=== PATIENT | female | born 1945 | race Caucasian/White ===

== ENCOUNTER → 2016-12-14 | Day surgery (SDC) | payer OTHER, BC ==
[2016-12-05 15:48] VITALS: Ht 160 cm; Wt 65.9 kg
[~2016-12-14] VITALS: Ht 160 cm; Wt 65.9 kg
[~2016-12-14] MED LIST: ATEN25TA PO; CALC667C4 PO; CHOL100010 PO; CLTP PO; CNT PO; DENO60SO INJ; LIDOCAINE HCL 2% 2 ML VIAL (20MG/ML) ONE; MIDAZOLAM HCL 1 MG/ML 2ML VIAL ONE; ONDANSETRON INJ 2 MG/ML 2 ML VIAL ONE; PROPOFOL IV EMULSION 10 MG/ML 20 ML VIAL IV ONE; SERT-234 PO; SODIUM CHLORIDE 0.9% 500ML 500 ML IV ONE; ZOLP10TA PO
--- NOTE | 2016-12-14 10:22 | Endo History and Physical ---
History & Physical Date of Service: Dec 14, 2016. Chief Complaint: Family history of colon cancer Referring Physician: James Preston History of Present Illness 71 yo CF who presents for colonoscopy secondary to family history of colon cancer. Past Medical History Arthritis, Hypertension, Other Past Surgical History Hx Cardiac Surgery: No Hx Internal Defibrillator: No Hx Pacemaker: No Hx Abdominal Surgery: Yes (D&C) Hx of Implantable Prosthesis: No Hx Post-Op Nausea and Vomiting: No Hx Cancer Surgery: No Hx Thoracic Surgery: No Hx Orthopedic: Yes (RT TKA) Hx Urinary Tract Surgery: No Family History Colon CA, IBD Social History Smoking Status: Never Smoker Hx Substance Use: No Hx Alcohol Use: Yes (2-3 DRINKS/WEEK) Allergies Coded Allergies: Sulfa Antibiotics (Verified Allergy, Unknown, unknown, 12/14/16) Pt states sulfa eye drops in past caused itching and redness of eye Current Medications Reported Home Medications Medications Dose Route/Sig Max Daily Dose Days Date Category Phoslo 667 Mg (Calcium Acetate) 667 Mg Cap 1 Cap PO DAILY 90 12/14/16 Reported Tenormin (Atenolol) 25 Mg Tab 25 Mg PO QPM 12/05/16 Reported Ambien (Zolpidem Tartrate) 10 Mg Tab 1 Tab PO HS 02/04/16 Reported Prolia (Denosumab) 60 Mg/Ml Maryam 1 Dose INJ [id number] 01/08/16 Reported Vitamin D (Cholecalciferol) 1,000 Inter.unit Tab 2,000 Inter.unit PO QAM 01/08/16 Reported Zoloft (Sertraline HCl) 100 Mg Tab 100 Mg PO BID 01/08/16 Reported Centrum * (Multivitamins/Minerals) 1 Tab Tab 1 Tab PO QAM 09/17/11 Reported Vital Signs Weight (Kilograms): 65.91 Height (Feet): 5 Height (Inches): 3 Date Time Temp Pulse Resp B/P Pulse Ox O2 Delivery O2 Flow Rate FiO2 12/14/16 10:15 36.9 87 20 104/79 96 Room Air Physical Exam General Appearance: WD/WN, no apparent distress Respiratory/Chest: Auscultation: breath sounds normal Cardiovascular: Heart Auscultation: RRR Abdomen: Bowel Sounds: normal Inspection & Palpation: soft, non-distended, no tenderness, guarding & rebound Assessment and Plan Assessment: 71 yo CF who presents for colonoscopy secondary to family history of colon cancer. Plan: Proceed with colonoscopy.
--- NOTE | 2016-12-14 11:04 | GI REPORT ---
Procedure Date: 12/14/2016 10:28 AM Procedure: Colonoscopy Indications: Family history of colon cancer Medicines: Monitored Anesthesia Care Complications: No immediate complications. Estimated Blood Loss: Estimated blood loss: none. Procedure: Pre-Anesthesia Assessment: - Prior to the procedure, a History and Physical was performed, and patient medications and allergies were reviewed. The patient's tolerance of previous anesthesia was also reviewed. The risks and benefits of the procedure and the sedation options and risks were discussed with the patient. All questions were answered, and informed consent was obtained. Prior Anticoagulants: The patient has taken no previous anticoagulant or antiplatelet agents. ASA Grade Assessment: II - A patient with mild systemic disease. After reviewing the risks and benefits, the patient was deemed in satisfactory condition to undergo the procedure. After I obtained informed consent, the scope was passed under direct vision. Throughout the procedure, the patient's blood pressure, pulse, and oxygen saturations were monitored continuously. The scope was introduced through the anus and advanced to the terminal ileum. The colonoscopy was performed without difficulty. The patient tolerated the procedure well. The quality of the bowel preparation was good. The terminal ileum, ileocecal valve, appendiceal orifice, and rectum were photographed. Findings: A 5 mm polyp was found in the transverse colon. The polyp was sessile. The polyp was removed with a hot snare. Resection and retrieval were complete. Multiple small-mouthed diverticula were found in the sigmoid colon. Non-bleeding internal hemorrhoids were found during retroflexion. The hemorrhoids were small. Impression: - One 5 mm polyp in the transverse colon, removed with a hot snare. Resected and retrieved. - Diverticulosis in the sigmoid colon. - Non-bleeding internal hemorrhoids. Recommendation: - Resume previous diet. - Continue present medications. - Repeat colonoscopy for surveillance based on pathology results. - Return to primary care physician as previously scheduled. Sunil Bruner DO 12/14/2016 11:04:21 AM This report has been signed electronically. Note Initiated On: 12/14/2016 10:28 AM
--- NOTE | 2016-12-14 11:06 | Discharge Instructions ---
Endoscopy Patient Instructions Date / Procedure(s) Performed Dec 14, 2016. Colonoscopy Allergy Information Coded Allergies: Sulfa Antibiotics (Verified Allergy, Unknown, unknown, 12/14/16) Pt states sulfa eye drops in past caused itching and redness of eye Discharge Date / Findings Dec 14, 2016. Colon polyp Diverticulosis Internal hemorrhoids Medication Instructions Stopped Medication(s): ATENOLOL-LAST DOSE 12/13/16 CALCIUM-LAST DOSE 12/13/16 VITAMIN D-LAST DOSE 12/13/16 MULITVITAMIN-LAST DOSE 12/13/16 OK to resume all medications today as prescribed. Reported Home Medications Medications Dose Route/Sig Max Daily Dose Days Date Category Phoslo 667 Mg (Calcium Acetate) 667 Mg Cap 1 Cap PO DAILY 90 12/14/16 Reported Tenormin (Atenolol) 25 Mg Tab 25 Mg PO QPM 12/05/16 Reported Ambien (Zolpidem Tartrate) 10 Mg Tab 1 Tab PO HS 02/04/16 Reported Prolia (Denosumab) 60 Mg/Ml Maryam 1 Dose INJ [id number] 01/08/16 Reported Vitamin D (Cholecalciferol) 1,000 Inter.unit Tab 2,000 Inter.unit PO QAM 01/08/16 Reported Zoloft (Sertraline HCl) 100 Mg Tab 100 Mg PO BID 01/08/16 Reported Centrum * (Multivitamins/Minerals) 1 Tab Tab 1 Tab PO QAM 09/17/11 Reported Provider Instructions Activity Restrictions - No exercising or heavy lifting for 24 hours. - Do not drink alcohol the day of the procedure. - Do not drive a car or operate machinery until the day after the procedure. - Do not make any important decisions or sign important papers in 24 hours after the procedure. Following Day: - Return to full activity which may include returning to work/school. Diet Start your diet with liquids and light foods (jello, soup, juice, toast). Then eat your usual diet if not nauseated. Treatment For Common After Affects For mild abdominal pain, bloating, or excessive gas: - Rest - Eat lightly - Lie on right side Follow-Up Information Follow-up with DR. LANA CARPENTER as scheduled Anesthesia Information What You Should Know You have had a procedure that required some medicine to reduce anxiety and discomfort. This treatment is called moderate sedation. After receiving the treatment, you may be sleepy, but you will be able to breathe on your own. The effects of the treatment may last for several hours. Follow these instructions along with Activity/Diet recommendations noted above: * Do NOT do anything where dizziness or clumsiness would be dangerous. * Rest quietly at home today, then you can be up and about tomorrow. * Have a responsible person stay with you the rest of today. * You may have had an I.V. today. If so, you may take the dressing off later today. Recommendations Call your doctor if: * Trouble breathing * Continuous vomiting for more than 24 hours * Temperature above 101 degrees * Severe abdominal pain or bloating * Pain not relieved by pain medicine ordered * There is increased drainage or redness from any incision * A large amount of rectal bleeding greater than 2-3 tablespoons. (If you had a polyp/s removed or have hemorrhoids, a small amount of blood - from the rectum is to be expected.) * You have any unanswered questions or concerns. IN THE EVENT OF A SERIOUS EMERGENCY, GO TO THE NEAREST EMERGENCY ROOM Your discharge instructions were prepared by provider Sunil Bruner. Patient Instructions Signature Page Josette French Patient (or Guardian) Signature/Date: I have read and understand the instructions given to me by my caregivers. Caregiver/RN/Doctor Signature/Date: The above-named patient and/or guardian has received patient instructions on this date. + Original Patient Signature Page (only) stays with chart. Please make copy for patient.
[2016-12-14 11:35] VITALS: BP 119/80; PULSE 80; O2SAT 96
--- NOTE | 2016-12-14 11:57 | Anesthesiology Progress Note ---
Anesthesia Post Op Note Date & Time Dec 14, 2016 at 11:57 Vital Signs Pain Intensity: 0 Vital Signs Past 12 Hours Date Time Temp Pulse Resp B/P Pulse Ox O2 Delivery O2 Flow Rate FiO2 12/14/16 11:35 80 18 119/80 96 Room Air 12/14/16 11:21 75 18 108/63 97 Room Air 12/14/16 11:11 77 16 104/59 97 Room Air 12/14/16 11:01 82 16 139/76 98 Room Air 12/14/16 10:15 36.9 87 20 104/79 96 Room Air Notes Mental Status: alert / awake / arousable, participated in evaluation Pt Amnestic to Procedure: Yes Nausea / Vomiting: adequately controlled Pain: adequately controlled Airway Patency, RR, SpO2: stable & adequate BP & HR: stable & adequate Hydration State: stable & adequate Anesthetic Complications: no major complications apparent
== END | disposition home or self-care (01) ==
LOC: C.GI 09:50
PROVIDERS: ATTEND Internal Medicine
DX: Z12.11 Encounter for screening for malignant neoplasm of colon (principal); D12.3 Benign neoplasm of transverse colon; Z80.0 Family history of malignant neoplasm of digestive organs; K57.30 Diverticulosis of large intestine without perforation or abscess without bleeding; K64.8 Other hemorrhoids; I10 Essential (primary) hypertension; M19.90 Unspecified osteoarthritis, unspecified site; Z83.79 Family history of other diseases of the digestive system; Z88.2 Allergy status to sulfonamides; Z98.890 Other specified postprocedural states

== ENCOUNTER → 2017-03-29 | Outpatient (CLI) | payer OTHER, BC ==
[~2017-03-29] MED LIST changes: -CLTP PO; -LIDOCAINE HCL 2% 2 ML VIAL (20MG/ML) ONE; -MIDAZOLAM HCL 1 MG/ML 2ML VIAL ONE; -ONDANSETRON INJ 2 MG/ML 2 ML VIAL ONE; -PROPOFOL IV EMULSION 10 MG/ML 20 ML VIAL IV ONE; -SODIUM CHLORIDE 0.9% 500ML 500 ML IV ONE
--- NOTE | 2017-03-29 17:06 | DIAGNOSTIC IMAGING REPORT ---
LUMBAR SPINE 5 VIEWS CLINICAL HISTORY: Lower extremity weakness. Chronic low back pain. FINDINGS: Five views of the lumbar spine are compared to study dated 04/19/2013. The skeletal structures are osteopenic. There is no radiographic evidence of fracture or malalignment. Vertebral body height and alignment are maintained throughout the lumbar spine. The transverse and spinous processes appear intact. There is no evidence of spondylolysis. Anterior osteophytes are seen throughout. There is moderate to severe degenerative disc space narrowing at L4-L5 with associated endplate sclerosis. Mild disc space narrowing is seen at L2-L3, L3-L4, and L5-S1. Endplate sclerosis is also seen at L2-L3. Facet arthropathy is noted in the lower lumbar spine. Mild spinal curvature may be positional. Lateral marginal osteophytes are seen at L4-L5. The visualized bony pelvis appears intact. There is a nonobstructed abdominal bowel gas pattern. IMPRESSION: 1. There is no acute bony abnormality seen involving the lumbosacral spine. 2. Osteopenia and spondylotic change as above. Dictated: 03/29/2017 4:16 PM Transcribed: 03/29/2017 5:06 PM Ryan Electronically signed by: Rios Hall M.D. 03/29/2017 5:18 PM Dictated Date/Time: 03/29/2017 4:16 PM
== END | disposition home or self-care (01) ==
LOC: C.RADBC 16:00
PROVIDERS: ATTEND Family Medicine
DX: R29.898 Other symptoms and signs involving the musculoskeletal system (principal); M85.80 Other specified disorders of bone density and structure, unspecified site

== ENCOUNTER → 2017-07-03 | Outpatient (CLI) | payer OTHER, BC ==
[2017-07-03 17:40] LABS: BLOOD UREA NITROGEN 17 mg/dl (7-18)
== END | disposition home or self-care (01) ==
LOC: C.LABBC 13:19
PROVIDERS: ATTEND Psychiatry & Neurology Neurology
DX: Z00.00 Encounter for general adult medical examination without abnormal findings (principal); N18.3 Chronic kidney disease, stage 3 (moderate)

== ENCOUNTER → 2017-07-07 | Outpatient (CLI) | payer OTHER, BC ==
[~2017-07-07] MED LIST changes: +GADAVIST IV PRN
--- NOTE | 2017-07-07 13:20 | DIAGNOSTIC IMAGING REPORT ---
BRAIN COMBO FOR MS HISTORY: Demyelinating disorder G35 Multiple sclerosis TECHNIQUE: Multiplanar multisequence MRI of the brain was performed both before and after the intravenous administration of contrast. COMPARISON STUDY: 07/15/2010 FINDINGS: Diffusion-weighted images are negative for an acute ischemic insult. Additional imaging sequences show multiple foci of increased signal within the periventricular deep white matter regions. This includes the optic radiations bilaterally as well as right anterior evan. No significant postcontrast enhancement. As compared to the prior study. There has been no interval change. There are no new foci of altered signal. Sella and parasellar regions are unremarkable. IMPRESSION: 1. Findings consistent with multiple sclerosis. 2. The study is unchanged compared to the prior study. 3. No new or interval findings. 4. No abnormal postcontrast enhancement The above report was generated using voice recognition software. It may contain grammatical, syntax or spelling errors. Electronically signed by: Anibal Kay M.D. 07/07/2017 1:19 PM Dictated Date/Time: 07/07/2017 1:12 PM
--- NOTE | 2017-07-07 13:31 | DIAGNOSTIC IMAGING REPORT ---
CERVICAL SPINE MRI WITH AND WITHOUT CONTRAST HISTORY: G35 Multiple sclerosis TECHNIQUE: Multiplanar multisequence MRI of the cervical spine was performed both before and after the use of intravenous contrast. COMPARISON STUDY: Cervical spine 07/16/2010. FINDINGS: No fracture or subluxation within the cervical spine. Prevertebral soft tissues and the C1-C2 interval are intact. Moderate to space narrowing at C2-C3, C3-C4, C4-C5, C5-C6. Severe disc space narrowing at C6-C7 which may be partially fused. There is also moderate to space are at C7-T1 and T1-T2. Mild to moderate facet degenerative changes throughout the cervical spine. Punctate focus of increased T2 signal within the right side of the cervical spinal cord at C5 and within the left side of the cervical spinal cord at the C7-T1 levels. No abnormal enhancement within the cervical spine. C2-C3: Small broad-based posterior disc bulge with no significant central canal and narrowing. Mild right-sided neural foraminal narrowing. C3-C4: No significant central canal narrowing due to a small broad-based posterior disc ossified complex. Mild bilateral neural foraminal narrowing. C4-C5: Small broad-based posterior disc bulge resulting in partial effacement of the anterior thecal sac which abuts the cord. However, there is no cord deformity. Moderate bilateral neural foraminal narrowing. C5-C6: Small broad-based posterior disc osteophyte complex without significant central canal narrowing. Moderate bilateral neural foraminal narrowing. C6-C7: No severe central canal narrowing. Mild right neural from narrowing. C7-T1: Small broad-based posterior disc bulge resulting in partial effacement of the anterior thecal sac without cord deformity. Mild right and moderate left neural foraminal narrowing. IMPRESSION: 1. A few punctate focus of increased T2 signal within the cervical spinal cord at the C5 level and C7-T1 levels. This likely represents foci of demyelination given the patient's history of multiple sclerosis. No abnormal enhancement to suggest active demyelination. These are new from the 2010 examination. 2. Multilevel cervical spondylosis as described above. Electronically signed by: Vinayak Ward M.D. 07/07/2017 1:29 PM Dictated Date/Time: 07/07/2017 1:15 PM
== END | disposition home or self-care (01) ==
LOC: C.MRIBC 11:44
PROVIDERS: ATTEND Psychiatry & Neurology Neurology
DX: G35 Multiple sclerosis (principal)

== ENCOUNTER → 2017-11-09 | Outpatient (CLI) | payer OTHER, BC ==
[~2017-11-09] MED LIST changes: -GADAVIST IV PRN
== END | disposition home or self-care (01) ==
LOC: C.PAPS 09:29
PROVIDERS: ATTEND Obstetrics & Gynecology
DX: Z12.4 Encounter for screening for malignant neoplasm of cervix (principal); Z78.0 Asymptomatic menopausal state

== ENCOUNTER → 2017-11-21 | Outpatient (CLI) | payer OTHER, BC ==
--- NOTE | 2017-11-21 15:57 | DIAGNOSTIC IMAGING REPORT ---
BONE SCAN 3 PHASE LIMITED CLINICAL HISTORY: HX OF KNEE REPLACEMENT pain TECHNIQUE: 3 phase study following the administration of 27 mCi technetium 99m MDP. COMPARISON STUDY: None FINDINGS: The initial vascular flow images demonstrate hyperemia to the region of the right knee. Blood pool images show increased activity about the right knee. Delayed images show increased activity deep to the femoral and to lesser extent tibial prosthesis. This appears to be localized to bone and is suggestive of loosening. 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 The above report was generated using voice recognition software. It may contain grammatical, syntax or spelling errors. Electronically signed by: Anibal Kay M.D. 11/21/2017 3:56 PM Dictated Date/Time: 11/21/2017 3:54 PM
== END | disposition home or self-care (01) ==
LOC: C.NUCL 12:10
DX: T84.032A Mechanical loosening of internal right knee prosthetic joint, initial encounter (principal); Y83.1 Surgical operation with implant of artificial internal device as the cause of abnormal reaction of the patient, or of later complication, without mention of misadventure at the time of the procedure; Y79.2 Prosthetic and other implants, materials and accessory orthopedic devices associated with adverse incidents

== ENCOUNTER → 2017-11-21 | Outpatient (CLI) | payer OTHER, BC ==
[2017-11-21 13:26] LABS: BASO % 0.8 %; BASO ABS # 0.05 K/uL (0-0.2); COMPLETE YES; EOS % 3.4 %; HEMATOCRIT 44.9 % (37-47); IG% 0.2 %; LYMPH % 16.6 %; LYMPH ABS # 1.03 K/uL (1.2-3.4); MEAN CELL VOLUME 92.8 fL (80-100); MEAN CORPUSCULAR HEMOGLOBIN 31.2 pg (25-34); MEAN CORPUSCULAR HGB CONC 33.6 g/dl (32-36); MEAN PLATELET VOLUME 10.3 fL (7.4-10.4); PLATELET COUNT 183 K/uL (130-400); RED BLOOD COUNT 4.84 M/uL (4.2-5.4)
[2017-11-21 13:52] LABS: ALT/SGPT 20 U/L (12-78); AST/SGOT 17 U/L (15-37); BLOOD UREA NITROGEN 18 mg/dl (7-18); BUN/CREATININE RATIO 17.7 (10-20); CALCIUM 9.3 mg/dl (8.5-10.1); CARBON DIOXIDE 29 mmol/L (21-32); CHLORIDE 106 mmol/L (98-107); CREATININE 1.02 mg/dl (0.60-1.20); GLUCOSE 86 mg/dl (70-99); SODIUM 139 mmol/L (136-145)
[2017-11-21 13:55] LABS: ALKALINE PHOSPHATASE 105 U/L (45-117); CHOLESTEROL 176 mg/dl (0-200); CHOLESTEROL/HDL RATIO 3.7; HDL CHOLESTEROL 47 mg/dl; LDL CHOLESTEROL CALCULATED 87 mg/dl; TRIGLYCERIDES 210 mg/dl (0-150); VERY LOW DENSITY LIPOPROT CALC 42 mg/dl
== END | disposition home or self-care (01) ==
LOC: C.LAB 12:53
DX: Z00.00 Encounter for general adult medical examination without abnormal findings (principal); T84.038A Mechanical loosening of other internal prosthetic joint, initial encounter; I12.9 Hypertensive chronic kidney disease with stage 1 through stage 4 chronic kidney disease, or unspecified chronic kidney disease; N18.3 Chronic kidney disease, stage 3 (moderate); Z13.220 Encounter for screening for lipoid disorders; Y83.1 Surgical operation with implant of artificial internal device as the cause of abnormal reaction of the patient, or of later complication, without mention of misadventure at the time of the procedure; Y79.2 Prosthetic and other implants, materials and accessory orthopedic devices associated with adverse incidents

== ENCOUNTER → 2017-11-28 | Outpatient (CLI) | payer OTHER, BC ==
[2017-11-28 16:32] LABS: BASO % 0.9 %; BASO ABS # 0.06 K/uL (0-0.2); EOS % 5.5 %; EOS ABS # 0.35 K/uL (0-0.5); HEMATOCRIT 44.5 % (37-47); IG# 0.02 K/uL (0.00-0.02); LYMPH % 22.9 %; LYMPH ABS # 1.46 K/uL (1.2-3.4); MEAN CELL VOLUME 93.5 fL (80-100); MEAN CORPUSCULAR HEMOGLOBIN 31.5 pg (25-34); MEAN CORPUSCULAR HGB CONC 33.7 g/dl (32-36); MEAN PLATELET VOLUME 10.4 fL (7.4-10.4); MONO % 9.7 %; MONO ABS # 0.62 K/uL (0.11-0.59); NEUT % 60.7 %; NEUT ABS # 3.87 K/uL (1.4-6.5); PLATELET COUNT 213 K/uL (130-400); RED CELL DISTRIBUTION WIDTH CV 13.4 % (11.5-14.5); RED CELL DISTRIBUTION WIDTH SD 45.5 fL (36.4-46.3); WHITE BLOOD COUNT 6.38 K/uL (4.8-10.8)
== END | disposition home or self-care (01) ==
LOC: C.LAB 15:38
DX: T84.038A Mechanical loosening of other internal prosthetic joint, initial encounter (principal); Y83.1 Surgical operation with implant of artificial internal device as the cause of abnormal reaction of the patient, or of later complication, without mention of misadventure at the time of the procedure

== ENCOUNTER → 2017-12-01 | Outpatient (CLI) | payer OTHER, BC | END | disposition home or self-care (01) | LOC: C.LAB 11:14 | DX: T84.018D Broken internal joint prosthesis, other site, subsequent encounter (principal); Y83.1 Surgical operation with implant of artificial internal device as the cause of abnormal reaction of the patient, or of later complication, without mention of misadventure at the time of the procedure ==

== ENCOUNTER → 2018-02-23 | Outpatient (CLI) | payer OTHER, BC ==
[2018-02-23 17:15] LABS: CREATININE 1.12 mg/dl (0.60-1.20)
== END | disposition home or self-care (01) ==
LOC: C.LAB1850 15:57
PROVIDERS: ATTEND Psychiatry & Neurology Neurology
DX: N18.3 Chronic kidney disease, stage 3 (moderate) (principal)

== ENCOUNTER → 2018-07-02 | Outpatient (CLI) | payer OTHER, BC ==
[2018-07-02 15:39] LABS: BLOOD UREA NITROGEN 16 mg/dl (7-18); CREATININE 1.04 mg/dl (0.60-1.20)
== END | disposition home or self-care (01) ==
LOC: C.LAB1850 13:45
PROVIDERS: ATTEND Psychiatry & Neurology Neurology
DX: G35 Multiple sclerosis (principal)

== ENCOUNTER → 2018-07-05 | Outpatient (CLI) | payer OTHER, BC ==
[~2018-07-05] MED LIST changes: +GADAVIST IV PRN
--- NOTE | 2018-07-05 14:50 | DIAGNOSTIC IMAGING REPORT ---
Brain MRI WITH AND WITHOUT CONTRAST HISTORY: Difficulty with balance. G35 Multiple sclerosis TECHNIQUE: Multiplanar multisequence MRI of the brain was performed both before and after the intravenous administration of contrast. COMPARISON STUDY: Brain MRI 07/07/2017. FINDINGS: No areas of restricted diffusion to suggest acute infarction. The midline structures are intact. The paranasal sinuses and mastoid air cells are clear. The major vascular flow-voids at the skull base are well-maintained. The ventricles and sulci demonstrate mild age-related involutional changes. There is no mass, hematoma, midline shift. The orbits are unremarkable. Multiple scattered foci of T2 hyperintensity seen predominantly within the periventricular white matter of the supratentorial brain are again noted. These are not significantly changed in size, number, distribution. Given the patient's history of multiple sclerosis these are consistent with white matter plaques. A punctate white matter plaque within the right evan remain stable. No abnormal enhancement to suggest active demyelination. Small developmental venous anomaly within the right frontal lobe remain stable. This is considered a normal variant. IMPRESSION: Multiple scattered white matter plaques are not significantly changed. This is consistent with the patient's history of multiple sclerosis. No abnormal enhancement to suggest active demyelination. Electronically signed by: Vinayak Ward M.D. 07/05/2018 2:48 PM Dictated Date/Time: 07/05/2018 2:37 PM
--- NOTE | 2018-07-05 14:53 | DIAGNOSTIC IMAGING REPORT ---
CERVICAL SPINE COMBO HISTORY: Demyelinating disorder G35 Multiple sclerosis TECHNIQUE: Multiplanar multisequence MRI of the cervical spine was performed both before and after the use of intravenous contrast. COMPARISON STUDY: 07/07/2017 FINDINGS: Moderate degenerative disc change at the entire cervical region. Foci of demyelination present described are diminished in prominence. There are no new or interval findings. No abnormal postcontrast enhancement. Degenerative disc change throughout with mild disc bulges throughout. No significant disc herniation or compromise of the spinal canal. No significant foraminal stenosis. IMPRESSION: 1. Stable to mildly improved exam. 2. A demyelinating foci present described are diminished in signal intensity and volume. 3. No evidence for new interval or progressive process. 4. Stable degenerative disc change throughout 5. No evidence for progressive lesion or significant postcontrast enhancement. The above report was generated using voice recognition software. It may contain grammatical, syntax or spelling errors. Electronically signed by: Anibal Kay M.D. 07/05/2018 2:51 PM Dictated Date/Time: 07/05/2018 2:37 PM
== END | disposition home or self-care (01) ==
LOC: C.MRI 12:53
PROVIDERS: ATTEND Psychiatry & Neurology Neurology
DX: G35 Multiple sclerosis (principal); M47.812 Spondylosis without myelopathy or radiculopathy, cervical region

== ENCOUNTER 2019-11-21 06:31 | Inpatient (IN) ==
--- NOTE | 2019-11-06 13:32 | PAT Medication Instructions ---
Medication Instructions Date of Service November 06, 2019 Home Medications calcium-vitamin D3-vitamin K 500 mg-1,000 unit-40 mcg chewable tablet 1 tab PO QDL cholecalciferol (vitamin D3) 2,000 unit tablet 2,000 units PO QAM multivitamin-ferrous fumarate-folic acid 18 mg-400 mcg tablet 1 tab PO QAM atenolol 25 mg PO QDL sertraline 200 mg PO QAM zolpidem 10 mg PO HS DO NOT take the morning of surgery calcium-vitamin D3-vitamin K 500 mg-1,000 unit-40 mcg chewable tablet 1 tab PO QDL cholecalciferol (vitamin D3) 2,000 unit tablet 2,000 units PO QAM multivitamin-ferrous fumarate-folic acid 18 mg-400 mcg tablet 1 tab PO QAM Take morning of surgery With a small sip of water, OTHERWISE NOTHING TO EAT OR DRINK AFTER MIDNIGHT: atenolol 25 mg PO QDL sertraline 200 mg PO QAM Take evening before surgery zolpidem 10 mg PO HS Other Notes If you have any questions please call us at [phone] or [phone] or [phone] or [phone]
--- NOTE | 2019-11-07 15:14 | Anesthesiology Consultation ---
Date of Service November 07, 2019 Assessment & Plan (1) Encounter for pre-operative examination: Chart Review Chart Review: Acceptable Risk for Surgery and Patient seen in Pre Admission Testing Teaching & Discussion Instructed NPO after midnight before surgery, except medications with 15 cc of water. Medication instructions provided according to the PAT guidelines. History Surgery Operation Date: 11/21/19 07:45 Proposed Procedures p L4-L5 Decompression and Fusion, Spinal Cord Monitoring - Silas Mitchell DO Height/Weight Height: 5 ft 3 in Weight: 68.6 kg Allergies Allergy/AdvReac Type Severity Reaction Status Date / Time Sulfa (Sulfonamide Allergy Unknown unknown Verified 10/31/19 11:51 Antibiotics) Medications Home Medications Medication Instructions Recorded Confirmed Last Taken calcium-vitamin D3-vitamin K 500 1 tab PO QDL tab 06/19/19 10/31/19 Unknown mg-1,000 unit-40 mcg chewable tablet cholecalciferol (vitamin D3) 2,000 2,000 units PO QAM tab 06/19/19 10/31/19 Unknown unit tablet multivitamin-ferrous 1 tab PO QAM 06/19/19 10/31/19 Unknown fumarate-folic acid 18 mg-400 mcg tablet atenolol 25 mg PO QDL 10/31/19 10/31/19 Unknown sertraline 200 mg PO QAM 10/31/19 10/31/19 Unknown zolpidem 10 mg PO HS 10/31/19 10/31/19 Unknown Past Medical History Medical History Bulging of intervertebral disc Depression Diverticulosis Hard of hearing High triglycerides History of colon polyps Hypertension (Chronic) Insomnia Low back pain Multiple sclerosis FOLLOWS W/ DR. REY Neurologic gait dysfunction Osteoporosis Stage III chronic kidney disease (Chronic) Normal BMP Exercise / Class Metabolic Activity III < 4 Walking/Shop/Light housework (Limited by back/leg pain, some mild SOB with 1 FOS but no CP) Past Family History Family History Mother Uterine cancer Father Acute myocardial infarction Brother Acute myocardial infarction Uncle Colon cancer maternal uncle Grandmother (Maternal) Colon cancer Past Surgical History Surgical History H/O tubal ligation History of colonoscopy History of loop electrical excision procedure (LEEP) S/P dilation and curettage S/P knee replacement right knee- 01/2016 Past Anesthesia History No Hx of Anesthesia Complications and No Family Hx of Anesthesia Complications History of PONV No Hx of PONV and No Hx of Motion Sickness Social History Smoking Status: Never smoker Do You Dip or Chew Tobacco: No Hx Alcohol Use: Yes Alcohol type: wine alcohol intake frequency: a few times a month Hx Substance Use: No substance use type: does not use Review of Systems Pt denies any recent chest pain, shortness of breath, palpitations, cough, fever or URI. Physical Exam Vital Signs BP: 134/76 P: 61 bpm SPO2: 97% RA T: 97.6 F R: 14 ENMT Mouth: + dentition abnormality (few missing) and + dental restorations (several crowns including front teeth); no chipped teeth and no loose teeth Thyromental Distance: < 3.5 Finger Breadths (3) Mallampati Class: II Neck normal visual inspection; neck extension not limited Respiratory normal respiratory effort Auscultation: lungs clear to auscultation bilaterally Cardiovascular Rate/Rhythm: regular rate and regular rhythm Heart Sounds: no murmur Vessels: no carotid bruit Extremities: no edema Testing Laboratory Results 11/07/19 14:47 11/07/19 14:47 PT 11.4 Seconds (9.0-12.0) 11/07/19 14:47 INR 1.1 (0.9-1.1) 11/07/19 14:47 APTT 25.4 Seconds (21.0-31.0) 11/07/19 14:47 Urine Color Yellow 11/07/19 Unknown Urine Appearance Cloudy (Clear) A 11/07/19 Unknown Urine pH 6.5 (4.5-7.5) 11/07/19 Unknown Ur Specific [place] 1.016 (1.000-1.030) 11/07/19 Unknown Urine Protein Negative (Negative) 11/07/19 Unknown Urine Glucose (UA) Negative (Negative) 11/07/19 Unknown Urine Ketones Negative (Negative) 11/07/19 Unknown Urine Nitrite Negative (Negative) 11/07/19 Unknown Ur Leukocyte Esterase 3+ (Negative) H 11/07/19 Unknown Urine WBC (Auto) >30 /hpf (0-5) H 11/07/19 Unknown Urine RBC (Auto) 5-10 /hpf (0-4) H 11/07/19 Unknown U Hyaline Cast (Auto) 1-5 /lpf (0-5) 11/07/19 Unknown U Epithel Cells (Auto) 20-30 /lpf (0-5) H 11/07/19 Unknown Urine Bacteria (Auto) Negative (Negative) 11/07/19 Unknown Blood Type A Positive 11/07/19 14:47 Antibody Screen NEGATIVE 11/07/19 14:47 11/07/19 Unknown Urine Culture - Final Urine,Clean Catch More than three types of organisms present, all moderate counts mixed probable skin salvador. No further identifications or sensitivities to follow. Electrocardiogram Date: 11/07/19 Findings: + NSR @ (65) and + RBBB Chest X-Ray Date: 11/07/19 FINDINGS: The patient is slightly AVINA rotated. Cardiac silhouette borderline enlarged. Minimal bibasilar opacities could be due to overlapping soft tissue in the setting of patient rotation. No pleural effusion or pneumothorax. Dextroscoliosis of the thoracolumbar junction. Chronic right AC joint separation. Upper abdomen normal. IMPRESSION: 1. Borderline cardiomegaly. 2. Apparent added density at the lung bases likely due to overlapping soft tissue in part due to patient rotation. 3. No acute cardiopulmonary disease.
[2019-11-07 15:35] LABS: Basophils # (auto) 0.04 K/uL (0-0.2); Basophils % (auto) 0.8 %; Eosinophils # (auto) 0.19 K/uL (0-0.5); Eosinophils % (auto) 3.8 %; Hematocrit (blood only) 43.5 % (37-47); Hemoglobin 14.4 g/dL (12.0-16.0); Immature Granulocytes # (auto) 0.01 K/uL (0.00-0.02); Immature Granulocytes % (auto) 0.2 %; Lymphocytes # (auto) 1.48 K/uL (1.2-3.4); Lymphocytes % (auto) 29.5 %; Mean Corpuscular Hemoglobin 30.7 pg (25-34); Mean Corpuscular Hgb Conc 33.1 g/dL (32-36); Mean Corpuscular Volume 92.8 fL (80-100); Mean Platelet Volume 10.7 fL (7.4-10.4); Monocytes # (auto) 0.44 K/uL (0.11-0.59); Monocytes % (auto) 8.8 %; Neutrophils # (auto) 2.86 K/uL (1.4-6.5); Neutrophils % (auto) 56.9 %; Platelet Count 179 K/uL (130-400); RDW Coefficient of Variation 13.4 % (11.5-14.5); RDW Standard Deviation 45.4 fL (36.4-46.3); Red Blood Count 4.69 M/uL (4.2-5.4); White Blood Count 5.02 K/uL (4.8-10.8)
[2019-11-07 15:42] LABS: Appearance Urine Cloudy (Clear); Bacteria Urine Automated Negative (Negative); Bilirubin Urine Negative (Negative); Blood Urine Negative (Negative); Color Urine Yellow; Epithelial Cell Urine Auto 20-30 /lpf (0-5); Glucose Urine UA Negative (Negative); Ketones Urine Negative (Negative); Leukocyte Esterase Urine 3+ (Negative); Nitrite Urine Negative (Negative); Protein Urine Negative (Negative); Specific Gravity Urine 1.016 (1.000-1.030); Urobilinogen Urine Negative (Negative); WBC Urine Automated >30 /hpf (0-5); pH Urine 6.5 (4.5-7.5)
--- NOTE | 2019-11-07 15:46 | XRay Report ---
XR chest Pre-admission PA/Lat CLINICAL HISTORY: 73 years-old Female presenting with preoperative assessment. TECHNIQUE: PA and lateral views of the chest were obtained. COMPARISON: None. FINDINGS: The patient is slightly AVINA rotated. Cardiac silhouette borderline enlarged. Minimal bibasilar opacit ies could be due to overlapping soft tissue in the setting of patient rotation. No pleural effusion o r pneumothorax. Dextroscoliosis of the thoracolumbar junction. Chronic right AC joint separation. Upp er abdomen normal. IMPRESSION: 1. Borderline cardiomegaly. 2. Apparent added density at the lung bases likely due to overlapping soft tissue in part due to pat ient rotation. 3. No acute cardiopulmonary disease. Electronically signed by: Cong Coffman M.D. 11/07/2019 3:45 PM
[2019-11-07 16:09] LABS: INR 1.1 (0.9-1.1); Partial Thromboplastin Ratio 0.9; Partial Thromboplastin Time 25.4 Seconds (21.0-31.0); Prothrombin Time 11.4 Seconds (9.0-12.0)
[2019-11-07 16:36] LABS: BUN Creatinine Ratio 14.7 (10-20); Calcium 8.7 mg/dl (8.5-10.1); Creatinine Clr Calc Pharmacy 47.5 ml/min; Est GFR (African American) 64.9; Potassium 4.2 mmol/L (3.5-5.1)
[~2019-11-21 06:31] MED LIST changes: +ACETAMINOPHEN 500 MG TAB PO SCH; -ATEN25TA PO; -CALC667C4 PO; +CEFAZOLIN 1000MG 1,000 MG/7.5 ML SYR IV SCH; -CHOL100010 PO; -CNT PO; +CeleBREX 200 MG CAP PO SCH; -DENO60SO INJ; +GABAPENTIN 300 MG CAP PO SCH; -GADAVIST IV PRN; +LR 15ML/HR IV SCH; -SERT-234 PO; -ZOLP10TA PO
[2019-11-21] MEDS ORDERED: MEPERIDINE HCL 25 MG/ML CARP IV PRN (06:59)
[2019-11-21] MEDS ORDERED: ONDANSETRON INJ 2 MG/ML 2 ML VIAL IV PRN ×2 (06:59→11:24)
[2019-11-21] MEDS ORDERED: ATROPINE SULFATE 0.1 MG/ML 10ML SYR IV PRN (06:59)
[2019-11-21] MEDS ORDERED: fentaNYL citrate 100 MCG/2 ML VIAL IV PRN (06:59)
[2019-11-21] MEDS ORDERED: HYDROmorphone INJ 1 MG/ML SYRINGE IV PRN ×2 (06:59→11:24)
[2019-11-21] MEDS ORDERED: ePHEDrine sulfate 50 MG/ML AMP IV PRN (06:59)
[2019-11-21] MEDS ORDERED: LABETALOL HCL IV 5 MG/ML 20ML IV PRN (06:59)
[2019-11-21] MEDS ORDERED: PHENYLEPHRINE 100MCG/ML 5ML SYR IV PRN (06:59)
[2019-11-21] MEDS ORDERED: BUPIVACAINE/EPINEPHRINE 0.5% MPF 1:200,000 10 ML VIAL ONE (07:00)
[2019-11-21] MEDS ORDERED: BACITRACIN INJ 50,000 UNIT VIAL ONE (07:01)
[2019-11-21] MEDS ORDERED: MIDAZOLAM HCL 1 MG/ML 2ML VIAL ONE (07:05)
[2019-11-21] MEDS ORDERED: fentaNYL citrate 100 MCG/2 ML VIAL ONE ×6 (07:06→09:50)
[2019-11-21] MEDS ORDERED: HYDROmorphone INJ 2 MG/ML SYR/VIAL ONE ×2 (07:06→08:22)
--- NOTE | 2019-11-21 07:32 | History & Physical Bridge Note ---
Date of Service November 21, 2019 History & Physical Bridge Note I have examined the patient, reviewed the History & Physical and in the interval since the performance of the History & Physical I have noted the following changes of clinical significance: no changes noted
--- NOTE | 2019-11-21 07:32 | History & Physical Report ---
Date of Service November 21, 2019 Assessment & Plan (1) Neurogenic claudication due to lumbar spinal stenosis: L4-L5 decompression fusion Present on Admission?: Yes History of Present Illness Chief Complaint: Back and leg pain Primary Care Provider: Lisa Hammond PA-C This is a 73-year-old female presents with chronic persistent back and leg pain. After failing extensive course of nonoperative care she is here for surgical intervention. Allergies Allergy/AdvReac Type Severity Reaction Status Date / Time Sulfa (Sulfonamide Allergy Unknown unknown Verified 11/21/19 07:19 Antibiotics) Home Medications Home Medications Medication Instructions Recorded Confirmed Type calcium-vitamin D3-vitamin K 500 1 tab PO QDL tab 06/19/19 11/21/19 History mg-1,000 unit-40 mcg chewable tablet cholecalciferol (vitamin D3) 2,000 2,000 units PO QAM tab 06/19/19 11/21/19 History unit tablet multivitamin-ferrous 1 tab PO QAM 06/19/19 11/21/19 History fumarate-folic acid 18 mg-400 mcg tablet atenolol 25 mg PO QDL 10/31/19 11/21/19 History sertraline 200 mg PO QAM 10/31/19 11/21/19 History zolpidem 10 mg PO HS 10/31/19 11/21/19 History Past Med/Surg History Medical History Bulging of intervertebral disc Depression Diverticulosis Hard of hearing High triglycerides History of colon polyps Hypertension (Chronic) Insomnia Low back pain Multiple sclerosis FOLLOWS W/ DR. REY Neurologic gait dysfunction Osteoporosis Stage III chronic kidney disease (Chronic) Normal BMP Surgical History H/O tubal ligation History of colonoscopy History of loop electrical excision procedure (LEEP) S/P dilation and curettage S/P knee replacement right knee- 01/2016 Family History Mother Uterine cancer Father Acute myocardial infarction Brother Acute myocardial infarction Uncle Colon cancer maternal uncle Grandmother (Maternal) Colon cancer Social History (Updated 10/28/19 @ 13:18 by Laura Mendez) Preferred Language: Malian Communication Ability: Effective Sales & Service Associate Required: No Beliefs That Will Affect Care: None Current Living Situation: Spouse Other Information That Helps Us Care for You: No Feels Safe at Home: Yes Safety Concerns: Feels Safe At This Time Smoking Status: Never smoker Do You Dip or Chew Tobacco: No ; Second Hand Exposure: No ; Hx Alcohol Use: Yes Alcohol type: wine Hx Substance Use: No caffeine: Yes Seatbelt Use: always Physical Exam Physical Exam: Patient is alert and oriented neurologically intact. Results & Data Vital Signs (Past 12 Hours) Vital Signs Temp Pulse Resp BP Pulse Ox 11/21/19 06:42 36.8 C 74 18 142/97 H 98
[2019-11-21] MEDS ORDERED: CEFAZOLIN 250 MG/ML 1 GM VIAL ONE (08:11)
[2019-11-21] MEDS ORDERED: FLOSEAL HEMOSTATIC MATRIX 10ML TOP ONE (08:27)
[2019-11-21] MEDS ORDERED: PHENYLEPHRINE 100MCG/ML 5ML SYR ONE ×2 (09:15→10:50)
[2019-11-21] MEDS ORDERED: NEOSTIGMINE METHYLSULFATE 1 MG/ML 10ML VIAL ONE (09:15)
[2019-11-21] MEDS ORDERED: ePHEDrine sulfate 50 MG/ML SYR ONE ×2 (09:15→10:50)
[2019-11-21] MEDS ORDERED: ROCURONIUM BROMIDE 10 MG/ML 5 ML VIAL ONE (09:15)
[2019-11-21] MEDS ORDERED: LIDOCAINE HCL 2% 2 ML VIAL/AMP(20MG/ML) INFIL ONE (09:15)
[2019-11-21] MEDS ORDERED: GLYCOPYRROLATE 0.2 MG/ML VIAL ONE (09:15)
[2019-11-21] MEDS ORDERED: ONDANSETRON INJ 2 MG/ML 2 ML VIAL ONE (09:15)
[2019-11-21] MEDS ORDERED: DEXAMETHASONE SOD INJ 4 MG/ML VIAL ONE (09:15)
[2019-11-21] MEDS ORDERED: PROPOFOL IV EMULSION 10 MG/ML 20 ML VIAL IV ONE (09:15)
[2019-11-21] MEDS ORDERED: LARYING-O-JET KIT (LTA) ONE (09:20)
--- NOTE | 2019-11-21 09:43 | Fluoroscopy Report ---
FL lumbar spine 2-3V CLINICAL HISTORY: 73 years-old Female presenting with L4-5 DECOMPRESSION/FUSION. TECHNIQUE: 2 fluoroscopic image(s) recorded as part of an intraoperative procedure. COMPARISON: MR lumbar spine from 08/21/2018. FINDINGS/IMPRESSION: Posterior bilateral transpedicular screw and juan fixation at L4-5 new from prior with interbody space r and L4 laminectomy. Please see surgical report for further details. Fluoroscopy dosage (mGy): 17.65. Fluoroscopy time: 19.5 seconds. Number or time of high level fluoroscopy (HLF), digital spot, or digital subtraction images: 0. ACT 112: Negative or not required by law. Electronically signed by: Cong Coffman M.D. 11/21/2019 9:42 AM
--- NOTE | 2019-11-21 09:46 | Operative Report ---
Post Operative Report Pre & Post Diagnosis Operation Date: 11/21/19 07:45 Pre-Op Diagnosis: Lumbar spinal stenosis with neurogenic claudication Post-Op Diagnosis: Same I identified the patient and participated in the time-out.: Yes Procedure Operation Date: 11/21/19 07:45 Actual Procedures #1 lumbar decompression with bilateral medial facetectomies foraminotomies L3-4 L4-5. #2 posterior spinal fusion L4-5 per #3 placed posterior instrumentation L4-5 per #4 interbody fusion L4-5 per #5 placed a peek cage 9 x 22 mm at L4-5. #6 placement of locally harvested morselized autograft in the posterior lateral gutters. #7 placement infuse collagen sponge, master graft in the posterior lateral gutters and ostial amp and interbody space. Surgeon Silas Mitchell DO Cubing Machine Tender None Estimated Blood Loss 175 Findings Consistent with Post-Op Diagnosis Specimens None Indications This is a 73-year-old female that presents with above-mentioned diagnosis after failing extensive course of nonoperative care is here for surgical invention. Description of Procedure Patient was met with identified informed consent obtained. Patient was then taken to the operative suite underwent an patient placed in a prone position the Jerzy table on top Carlo frame. All bony prominences well-padded eyes inspected to ensure no external pressure placed upon. This point the lumbar spine is prepped and draped in a sterile fashion. Sharp dissection with the assistance of Bovie cautery was performed down to and exposing the lamina transverse processes of L4 and L5 bilaterally. From a caudal cephalad fashion complete laminectomy of L4 was performed including bilateral medial facetectomi es and foraminotomies addressing his severe spinal stenosis. Pedicle screws were then placed in L4 and L5 bilaterally with assistance of fluoroscopy and the probably size juan placed. By way of a trans-foraminal approach on the left complete discectomy was performed endplates curetted to subcortical bleeding bone and a 9 x 22 mm peek cage filled with osteo-bone graft tapped in position. The rods were then locked in final position bilaterally. The transverse processes of L4 and L5 bur to subcortical bleeding bone. Infuse collagen sponge master graft and local autograft was placed in the posterior lateral gutters. 15 round NEVIN drain inserted. The incision was then closed with 1 Vicryl in the fascia 2-0 Vicryl subcutaneously and 4 Monocryl for final skin closure. Steri- Strip sterile dressings placed. Patient will continue PACU stable addition. Please note spinal cord monitoring was utilized that the procedure no changes noted. I attest to the content of the Intraoperative Record and any orders documented therein. Any exceptions are noted below.
[2019-11-21] MEDS ORDERED: ESMOLOL HCL INJ 10 MG/ML 10ML VIAL IV ONE (09:56)
--- NOTE | 2019-11-21 10:38 | Anesthesiology Progress Note ---
Date of Service November 21, 2019 Anesthesia Post Procedure Vital Signs Vital Signs: Temp Pulse Resp BP Pulse Ox 11/21/19 10:30 88 13 98/65 L 99 11/21/19 10:20 92 H 19 98/65 L 100 11/21/19 10:10 93 H 16 101/73 100 11/21/19 10:00 36.3 C L 101 H 13 99/75 L 100 11/21/19 06:42 36.8 C 74 18 142/97 H 98 Pain Intensity Lower Medial Back: Pain Intensity: 0 Transfer of Care Handoff Completed per policy Notes Mental Status: alert / awake / arousable Patient Amnestic to Procedure: Yes Nausea / Vomiting: adequately controlled Pain: adequately controlled Airway Patency, RR, SpO2: stable & adequate BP & HR: stable & adequate Hydration State: stable & adequate Anesthetic Complications: no major complications apparent and Pt Satisfied with anesthetic care
[2019-11-21] MEDS ORDERED: ACETAMINOPHEN 500 MG TAB PO PRN (11:24)
[2019-11-21] MEDS ORDERED: ONDANSETRON 4 MG OD TAB PO PRN (11:24)
[2019-11-21] MEDS ORDERED: FAMOTIDINE 20 MG TAB PO PRN (11:24)
[2019-11-21] MEDS ORDERED: NALOXONE HCL 0.4 MG/1 ML VIAL/CARP IV PRN (11:24)
[2019-11-21] MEDS ORDERED: SOD PHOSPHATE/SOD BIPHOSPHATE ENEMA 132 ML BTL PR PRN (11:24)
[2019-11-21] MEDS ORDERED: HYDROmorphone INJ 0.5 MG/0.5 ML SYR IV PRN (11:24)
[2019-11-21] MEDS ORDERED: LORazepam 0.5 MG TAB PO PRN (11:24)
[2019-11-21] MEDS ORDERED: DO NOT ADMINISTER PNEUMOCOCCAL VACCINE PRN (11:24)
[2019-11-21] MEDS ORDERED: ACETAMINOPHEN 1,000 MG/100 ML VIAL IV PRN (11:24)
[2019-11-21] MEDS ORDERED: bisacodyL 10 MG SUPP PR PRN (11:24)
[2019-11-21] MEDS ORDERED: ALUMINUM/MAGNESIUM SUSP 30 ML UDC PO PRN (11:24)
[2019-11-21] MEDS ORDERED: MAGNESIUM HYDROXIDE SUSP 30 ML UDC PO PRN (11:24)
[2019-11-21] MEDS ORDERED: METOCLOPRAMIDE HCL INJ 5 MG/ML 2 ML VIAL IV PRN (11:24)
[2019-11-21] MEDS ORDERED: PROMETHAZINE HCL 12.5 MG in SODIUM CHLORIDE 0.9% 50 ML IV PRN (11:24)
[2019-11-21] MEDS ORDERED: LORazepam 0.5 MG/1 ML VIAL IV PRN (11:24)
[2019-11-21] MEDS ORDERED: DO NOT ADMINISTER FLU VACCINE PRN (11:24)
[2019-11-21] MEDS: ATENOLOL 25 MG TABLET PO SCH (11:54)
[2019-11-21] MEDS: CALCIUM 600MG + VIT D 400 IU TAB PO SCH (12:43)
[2019-11-21] MEDS: SODIUM CHLORIDE 0.9% 1000ML 1,000 ML IV SCH ×2 (12:44→22:06)
[2019-11-21] MEDS ORDERED: NURSING DECISION MEDICATION ONE (14:16)
[2019-11-21] MEDS ORDERED: COUGH DROP (SUGAR FREE) LOZ 24 LOZ/1 BOX BUCCAL PRN (14:22)
[2019-11-21] MEDS: CEFAZOLIN 1000MG 1,000 MG/7.5 ML SYR IV SCH (17:29)
[2019-11-21] MEDS: DOCUSATE SODIUM/SENNA 50/8.6MG TAB PO SCH (21:05)
[2019-11-21] MEDS: ZOLPIDEM TARTRATE 10 MG TAB PO SCH (21:05)
[2019-11-21] MEDS: OXYCODONE HCL IR 5 MG TAB (IMMEDIATE RELEASE) PO PRN (21:19)
[2019-11-22] MEDS: CEFAZOLIN 1000MG 1,000 MG/7.5 ML SYR IV SCH (00:20)
[2019-11-22] MEDS: OXYCODONE HCL IR 5 MG TAB (IMMEDIATE RELEASE) PO PRN ×3 (05:16→17:58)
[2019-11-22] MEDS: POLYETHYLENE (MIRALAX) 17 GM PACK PO SCH ×4 (05:16→23:45)
[2019-11-22 05:17] LABS: Basophils # (auto) 0.01 K/uL (0-0.2); Basophils % (auto) 0.1 %; Eosinophils # (auto) 0.01 K/uL (0-0.5); Eosinophils % (auto) 0.1 %; Hematocrit (blood only) 33.7 % (37-47); Hemoglobin 10.7 g/dL (12.0-16.0); Immature Granulocytes # (auto) 0.02 K/uL (0.00-0.02); Immature Granulocytes % (auto) 0.2 %; Lymphocytes # (auto) 1.21 K/uL (1.2-3.4); Lymphocytes % (auto) 13.9 %; Mean Corpuscular Hemoglobin 30.1 pg (25-34); Mean Corpuscular Hgb Conc 31.8 g/dL (32-36); Mean Corpuscular Volume 94.9 fL (80-100); Mean Platelet Volume 9.8 fL (7.4-10.4); Monocytes # (auto) 1.01 K/uL (0.11-0.59); Monocytes % (auto) 11.6 %; Neutrophils # (auto) 6.43 K/uL (1.4-6.5); Neutrophils % (auto) 74.1 %; Platelet Count 157 K/uL (130-400); RDW Standard Deviation 48.3 fL (36.4-46.3); Red Blood Count 3.55 M/uL (4.2-5.4); White Blood Count 8.69 K/uL (4.8-10.8)
[2019-11-22 05:38] LABS: BUN Creatinine Ratio 12.5 (10-20); Calcium 7.7 mg/dl (8.5-10.1); Creatinine Clr Calc Pharmacy 45.3 ml/min; Est GFR (African American) 61.2; Est GFR (Non-African American) 52.8; Potassium 4.3 mmol/L (3.5-5.1)
[2019-11-22] MEDS ORDERED: Nursing to Pharmacy Communication ONE (07:25)
[2019-11-22] MEDS: SODIUM CHLORIDE 0.9% 1000ML 1,000 ML IV SCH (07:44)
[2019-11-22] MEDS: SERTRALINE HCL 100 MG TABLET PO SCH (08:24)
[2019-11-22] MEDS: CEROVITE ADV FORMULA TAB PO SCH (08:24)
[2019-11-22] MEDS: CHOLECALCIFEROL 1,000 UNITS TAB PO SCH (08:25)
--- NOTE | 2019-11-22 09:42 | Anesthesiology Progress Note ---
Date of Service November 22, 2019 Anesthesia Post Procedure Vital Signs Vital Signs: Temp Pulse Pulse Resp BP BP Pulse Ox 11/22/19 08:23 111 H 119/76 11/22/19 07:15 37.2 C 110 H 18 105/69 96 11/22/19 03:01 36.9 C 107 H 18 97/58 L 11/21/19 23:15 36.6 C 98 H 18 92/57 L 93 11/21/19 20:23 36.7 C 87 16 99/66 L 91 11/21/19 14:06 36.6 C 86 15 107/67 94 11/21/19 13:05 36.5 C 81 14 99/65 L 94 11/21/19 12:00 36.3 C L 78 14 103/66 97 11/21/19 11:32 78 15 100/65 96 11/21/19 11:00 36.5 C 79 15 103/66 99 11/21/19 10:55 88 15 104/64 100 11/21/19 10:50 87 16 103/67 100 11/21/19 10:40 36.5 C 86 17 99/62 L 98 11/21/19 10:30 88 13 98/65 L 99 11/21/19 10:20 92 H 19 98/65 L 100 11/21/19 10:10 93 H 16 101/73 100 11/21/19 10:00 36.3 C L 101 H 13 99/75 L 100 Pain Intensity Lower Medial Back: Pain Intensity: 0 Notes Mental Status: alert / awake / arousable Patient Amnestic to Procedure: Yes Nausea / Vomiting: adequately controlled Pain: adequately controlled Airway Patency, RR, SpO2: stable & adequate BP & HR: stable & adequate Hydration State: stable & adequate Anesthetic Complications: no major complications apparent and Pt Satisfied with anesthetic care
--- NOTE | 2019-11-22 10:14 | Orthopedic Progress Note ---
Date of Service November 22, 2019 Assessment & Plan (1) Neurogenic claudication due to lumbar spinal stenosis: At this time initiate physical therapy monitor her NEVIN output hopefully discharge home later half this weekend. Present on Admission?: Yes Subjective Patient's back pain is controlled leg symptoms are improved. Physical Exam Physical Exam: Patient is in the chair at the bedside is good strength testing. Appears comfortable. Results & Data Vital Signs (Past 12 Hours) Vital Signs Temp Pulse Resp BP BP Pulse Ox 11/22/19 08:23 111 H 119/76 11/22/19 07:15 37.2 C 110 H 18 105/69 96 11/22/19 03:01 36.9 C 107 H 18 97/58 L 11/21/19 23:15 36.6 C 98 H 18 92/57 L 93
[2019-11-22] MEDS: CALCIUM 600MG + VIT D 400 IU TAB PO SCH (10:30)
[2019-11-22] MEDS: ATENOLOL 25 MG TABLET PO SCH (10:30)
[2019-11-22] MEDS: TRAMADOL HCL 50 MG TABLET PO PRN (15:57)
[2019-11-22] MEDS: DOCUSATE SODIUM/SENNA 50/8.6MG TAB PO SCH (17:54)
[2019-11-22] MEDS: ZOLPIDEM TARTRATE 10 MG TAB PO SCH (20:43)
[2019-11-23] MEDS: POLYETHYLENE (MIRALAX) 17 GM PACK PO SCH ×3 (06:07→18:08)
[2019-11-23] MEDS: CEROVITE ADV FORMULA TAB PO SCH (08:51)
[2019-11-23] MEDS: CHOLECALCIFEROL 1,000 UNITS TAB PO SCH (08:51)
[2019-11-23] MEDS: SERTRALINE HCL 100 MG TABLET PO SCH (08:51)
--- NOTE | 2019-11-23 10:22 | Orthopedic Progress Note ---
Date of Service November 23, 2019 Assessment & Plan (1) Neurogenic claudication due to lumbar spinal stenosis: This time I am going to discontinue her Ativan and hydromorphone and oxycodone. We will continue activity as tolerated monitor her progress. Hopefully discharge home but may consider rehab. Present on Admission?: Yes Subjective Patient's back pain controlled leg symptoms improved. She does have moments of weakness when ambulating. But at times can be completely independent. Physical Exam Physical Exam: Patient is good strength testing she is ambulating halls. Results & Data Vital Signs (Past 12 Hours) Vital Signs Temp Pulse Resp BP Pulse Ox 11/23/19 06:57 37.3 C 109 H 18 100/68 93 11/22/19 23:46 37.2 C 100 H 16 96/64 L 92
[2019-11-23] MEDS: ATENOLOL 25 MG TABLET PO SCH (10:47)
[2019-11-23] MEDS: CALCIUM 600MG + VIT D 400 IU TAB PO SCH (10:47)
[2019-11-23] MEDS: TRAMADOL HCL 50 MG TABLET PO PRN ×3 (13:35→19:40)
[2019-11-23] MEDS: ZOLPIDEM TARTRATE 10 MG TAB PO SCH (21:12)
[2019-11-23] MEDS: DOCUSATE SODIUM/SENNA 50/8.6MG TAB PO SCH (21:13)
[2019-11-23] MEDS ORDERED: Nursing to Pharmacy Communication ONE (21:40)
[2019-11-24] MEDS: TRAMADOL HCL 50 MG TABLET PO PRN ×3 (07:41→17:22)
[2019-11-24] MEDS: CHOLECALCIFEROL 1,000 UNITS TAB PO SCH (07:42)
[2019-11-24] MEDS: CEROVITE ADV FORMULA TAB PO SCH (07:42)
[2019-11-24] MEDS: SERTRALINE HCL 100 MG TABLET PO SCH (07:42)
--- NOTE | 2019-11-24 10:03 | Orthopedic Progress Note ---
Date of Service November 24, 2019 Assessment & Plan (1) Neurogenic claudication due to lumbar spinal stenosis: Patient continues to present with somewhat controversial progress. At one moment she will be quite functional ambulating 100 feet and then hours later notes significant weakness to the back and legs. We did markedly reduce her pain medication. Suspect this is still contributing to some degree. We will monitor her progress today hopefully discharge home tomorrow. Present on Admission?: Yes Subjective Patient did very nicely today with therapy but still notes intermittent weakness to the back and legs. Physical Exam Physical Exam: Patient is in the chair at the bedside is good strength testing appears comfortable. Results & Data Vital Signs (Past 12 Hours) Vital Signs Temp Pulse Resp BP BP Pulse Ox 11/24/19 07:13 36.9 C 97 H 16 93/63 L 99 11/24/19 00:41 37.1 C 96 H 16 94/59 L 92
[2019-11-24] MEDS: ATENOLOL 25 MG TABLET PO SCH (11:52)
[2019-11-24] MEDS: CALCIUM 600MG + VIT D 400 IU TAB PO SCH (11:52)
[2019-11-24] MEDS: ZOLPIDEM TARTRATE 10 MG TAB PO SCH (21:09)
[2019-11-24] MEDS: DOCUSATE SODIUM/SENNA 50/8.6MG TAB PO SCH (21:13)
[2019-11-25] MEDS: CHOLECALCIFEROL 1,000 UNITS TAB PO SCH (08:01)
[2019-11-25] MEDS: SERTRALINE HCL 100 MG TABLET PO SCH (08:01)
[2019-11-25] MEDS: CEROVITE ADV FORMULA TAB PO SCH (08:01)
[2019-11-25] MEDS: TRAMADOL HCL 50 MG TABLET PO PRN ×2 (08:02→12:29)
--- NOTE | 2019-11-25 09:55 | Discharge Summary ---
Date of Service November 25, 2019 Admission HPI Per Admitting Provider This is a 73-year-old female presents with chronic persistent back and leg pain. After failing extensive course of nonoperative care she is here for surgical intervention. Principal Diagnosis Lumbar spinal stenosis with neurogenic claudication Discharge Data Allergies Allergy/AdvReac Type Severity Reaction Status Date / Time Sulfa (Sulfonamide Allergy Unknown unknown Verified 11/21/19 07:19 Antibiotics) Consultations 11/21/19 11:24 Consult Case Management - Discharge Planning Routine Procedures Performed Operation Date: 11/21/19 07:45 Actual Procedures p L4-L5 Decompression and Fusion, Interbody Fusion, use of Osteoamp and Infuse, Spinal Cord Monitoring(Not Applicable) - Silas Mitchell DO Ordered Studies 11/21/19 07:45 FL fluoroscopy <1hr Routine FL lumbar spine 2-3V Routine Hospital Course (1) Neurogenic claudication due to lumbar spinal stenosis: Patient with lumbar decompression fusion troll as well as taken to orthopedic for postoperative. Postop course was somewhat unreliable. One moment she been ambulating quite nicely but then have weakness several hours later. We did discontinue majority of her medications this provided some improvement. Nevertheless she is best suited for a rehab facility. Subsequently she was discharged to acute rehab. Neurologically she is intact on the day of discharge discharge instructions from the chart for further review. Total Time Total Time Spent Total Time Spent (In Minutes): 20 minutes Discharge Plan Discharge Items Patient Disposition: Transfer Inpatient Rehab Fac Reason For Visit: LUMBAR SPINAL STENOSIS WO NEUROGENIC CLAUDICATION Discharge Diagnosis: Lumbar spinal stenosis with neurogenic claudication Activity: Per Instructions section Non-emergency contact: Primary Care Provider Call non-emergency contact if: you have any medication questions Follow-up/Referrals: Lisa Hammond PA-C [Primary Care Provider] - Diet: Regular Addtl Attending Provider Instructions: ACTIVITY RECOMMENDATIONS: SELF CARE INSTRUCTIONS AFTER THORACIC/LUMBAR FUSIONS 1. You may walk to your tolerance. It is good exercise for your legs and back. Expect some back and intermittent leg aches and pains. 2. You may perform "counter-top" level activities (make a sandwich, beulah with a project, etc.). 3. No bending or lifting of more than 10 pounds or back twisting of any nature (roll like a log when turning in bed). 4. You may ride in a car for 20-30 minutes at a time. No driving until after your first visit with your doctor. 5. Frequent changes of position and restricting sitting to 30 minutes at a time will help limit the amount of back spasms and stiffness you may experience. 6. You may discontinue the use of ambulatory aids (cane, crutches, etc.) once your strength and confidence allow. 7. You may towel cabinet repairer the shower and let water strike your incision when you arrive home at least once daily. Do not take a tub bath, sit in a hot tub or go into a swimming pool until after your first recheck in the office. SPECIAL CARE INSTRUCTIONS: VERY IMPORTANT TO READ AND REVIEW A. Your surgical incision has been closed with a cosmetic suture under the skin that will dissolve in about 6 weeks. In 14 days, you can use a pair of clean scissors and cut the suture that is left outside of the skin at the ends of your incision. 1. The small skin tapes can be removed 7 days after surgery if they have not fallen off by that point. 2. You may keep the wound open to air as much as possible to promote healing after post-op day number 5 unless told otherwise by your doctor. 3. If you think the wound looks like it is becoming infected (redness or worsening drainage) and/or you are experiencing fever, chill or worsening back pain and muscle spasms, contact the office so that we may ev aluate you as soon as possible. B. Complications are uncommon, but please contact us if you have any signs or symptoms of: 1. wound infection (fever higher than 102.5 degrees F, redness, separation of wound, drainage, or increasing pain from the incision) 2. blood clots in legs (pain, swelling, redness and warmth in legs) 3. urinary tract infection (fever higher than 102.5 degrees F, burning upon urination or increased frequency of urination) 4. nerve problems (inability to walk on your toes or heels, numbness, loss of bowel or bladder control) 5. any other symptoms that concern you C. Please call the office at if you have any concerns or questions about your operation or recovery. D. No smoking! Smoking drastically decreases the chance of a solid fusion. E. Do not take any anti-inflammatory medications (Indocin, Advil, Motrin, A spirin, Naprosyn, etc.) as these may inhibit the chance of a solid fusion. Tylenol is okay to take for pain. MANAGING PAIN AFTER SPINAL SURGERY 1. Narcotic medication is intended for short-term use and will be provided for surgical pain. Surgical pain usually lasts for a period of 4-6 weeks. Narcotic medication includes Percocet, Vicodin, Darvocet, Tylenol #3 or Lortab. 2. Longer-term pain is more appropriately treated with non-narcotic medication such as Tylenol ES. 3. Muscle spasm is not appropriately treated with narcotics. Muscle relaxers such as Soma, Flexeril or Skelaxin can be used along with Tylenol ES. 4. Remember that we all live with some "aches and pains". This is not unusual or uncommon after an injury or as we get older. a. Back pain is expected and may include muscle spasms for 4 to 6 weeks after surgery. The pain should gradually improve. If the pain worsens for no apparent reason, please contact the office. b. Intermittent leg pain may also be experienced and should not be concerned about unless it worsens for no apparent reason. If so, please contact the office. 5. We will provide appropriate medication within the normal guidelines of their prescribed use. We will also be very cautious and aware of potential abuse and extended duration of patients' medication needs. a. Pain medications are for your comfort and to assist with sleep and rest so that the tissue can heal. They are not provided in order to return to normal activity and should not be used through the day. To do so or worsening pain at night can result from ongoing tissue damage and development of tolerance to the prescribed medicine. 6. Please allow 2-3 days to process refills. Prescriptions will not be mailed but must be picked up at the office. FOLLOW UP VISIT: Keep your scheduled follow-up appointment. Any questions, please call the office at . Pending Studies at Discharge: No Stand-Alone Forms: My Medipacs, Smoking Cessation Skilled Items Patient informed of condition?: Yes DNR: No Discharge Level of Care: Acute rehab Communicable Disease: No Discharge Prognosis: Improving Lines: None Urinary Catheter: No Medications and DC Order Prescriptions: New tramadol 50 mg tablet 50 mg PO Q6H PRN (Reason: pain, moderate) Qty: 30 RF: 0 oxycodone 5 mg tablet 5 mg PO Q6H PRN (Reason: pain, severe) Qty: 30 RF: 0 Continued calcium-vitamin D3-vitamin K 500 mg-1,000 unit-40 mcg tablet,chewable 1 tab PO QDL RF: 0 Centrum 18-400 mg-mcg tablet 1 tab PO QAM RF: 0 cholecalciferol (vitamin D3) 2,000 unit tablet 2,000 units PO QAM RF: 0 sertraline 100 mg tablet 200 mg PO QAM RF: 0 atenolol 25 mg tablet 25 mg PO QDL RF: 0 zolpidem 10 mg tablet 10 mg PO HS RF: 0 Discharge Orders: Discharge Order (Routine); Ordered 11/25/19 Ordered By: Silas Mitchell Admission Data Admit Date/Time: 11/21/19 10:09 Attending Provider: Silas Mitchell Admit Provider: Silas Mitchell Primary Care Provider: Lisa Hammond Other Providers: [facility]
[2019-11-25] MEDS: ATENOLOL 25 MG TABLET PO SCH (11:40)
[2019-11-25] MEDS: CALCIUM 600MG + VIT D 400 IU TAB PO SCH (11:41)
== END 2019-11-25 13:52 | DRG 455 ==
LOC: ASU 06:31 → 3E 10:09

== ENCOUNTER 2024-08-28 08:20 | Inpatient (IN) ==
--- NOTE | 2024-07-31 09:42 | PAT Medication Instructions ---
Medication Instructions Date of Service July 31, 2024 Home Medications Medication Instructions Recorded multivitamin-ferrous 1 tab PO QAM #90 tabs 04/20/21 fumarate-folic acid 18 mg-400 mcg tablet (Centrum) atenolol 25 mg tablet 25 mg PO QAM #90 tabs 01/31/24 multivitamin-ferrous fumarate-folic acid 18 mg-400 mcg tablet (Centrum) 1 tab PO QAM fluticasone propionate 50 mcg/actuation nasal spray,suspension 1 spray intranasal UD PRN Congestion denosumab 60 mg/mL subcutaneous syringe (Prolia) 60 mg subcut UD fluocinolone acetonide oil 0.01 % ear drops 4 drp otic (ear) UD PRN ear itching atenolol 25 mg tablet 25 mg PO QAM hydroxyzine HCl 10 mg tablet 10 mg PO UD PRN Sleep sertraline 100 mg tablet 100 mg PO QAM Continue as directed denosumab 60 mg/mL subcutaneous syringe (Prolia) 60 mg subcut UD DO NOT take the morning of surgery multivitamin-ferrous fumarate-folic acid 18 mg-400 mcg tablet (Centrum) 1 tab PO QAM Take morning of surgery With a small sip of water, OTHERWISE NOTHING TO EAT OR DRINK AFTER MIDNIGHT: fluticasone propionate 50 mcg/actuation nasal spray,suspension 1 spray intranasal UD PRN Congestion (if needed) fluocinolone acetonide oil 0.01 % ear drops 4 drp otic (ear) UD PRN ear itching .if atenolol 25 mg tablet 25 mg PO QAM sertraline 100 mg tablet 100 mg PO QAM Take evening before surgery fluticasone propionate 50 mcg/actuation nasal spray,suspension 1 spray intranasal UD PRN Congestion (if needed) fluocinolone acetonide oil 0.01 % ear drops 4 drp otic (ear) UD PRN ear itching (if needed) hydroxyzine HCl 10 mg tablet 10 mg PO UD PRN Sleep (if needed) Other Notes If you have any questions please call us at [phone] or [phone] or [phone] or [phone]
--- NOTE | 2024-08-01 09:31 | Anesthesiology Consultation ---
Date of Service August 01, 2024 Assessment & Plan (1) Encounter for pre-operative examination: - Infectious disease screening: Per assessment on 08/01/24: No known recent infectious disease contacts or current infectious disease symptoms. - Patient unable to void at PAT visit. Patient states she will bring to [place] in near future. Awaiting surgeon-ordered preop UA + PCP preop evaluation ([place]). Patient otherwise acceptable risk for surgery. Chart Review Chart Review: Patient seen in Pre Admission Testing Teaching & Discussion Pre-Anesthesia Teaching/Discussion Notes: Instructed NPO after midnight before surgery,except medications with 15 cc of water. Medication instructions provided according to the [facility] guidelines. History Surgery Operation Date: 08/28/24 07:45 Proposed Procedures p L3-L4 Decompression and Fusion, Removal Hardware L4-L5 Elbow/Shoulder, with Spinal Cord Monitoring - Silas Mitchell DO Height/Weight Height: 5 ft 3 in Weight: 67.4 kg Allergies Allergy/AdvReac Type Severity Reaction Status Date / Time trazodone AdvReac Mild Headache Verified 08/01/24 14:43 Medications Home Medications Medication Instructions Recorded Confirmed Last Taken multivitamin-ferrous 1 tab PO QAM #90 tabs 04/20/21 08/01/24 04/30/23 fumarate-folic acid 18 mg-400 mcg tablet (Centrum) fluticasone propionate 50 1 spray intranasal UD PRN 04/12/22 08/01/24 04/09/23 mcg/actuation nasal Congestion spray,suspension denosumab 60 mg/mL subcutaneous 60 mg subcut UD 04/06/23 08/01/24 04/09/23 syringe (Prolia) fluocinolone acetonide oil 0.01 % 4 drp otic (ear) UD PRN ear itching 04/06/23 08/01/24 Unknown ear drops atenolol 25 mg tablet 25 mg PO QAM #90 tabs 01/31/24 08/01/24 Unknown hydroxyzine HCl 10 mg tablet 10 mg PO UD PRN Sleep 07/30/24 08/01/24 Unknown sertraline 100 mg tablet 100 mg PO QAM 07/30/24 08/01/24 Unknown Past Medical History Medical History Depression Hard of hearing High triglycerides History of colon polyps History of COVID-19 Hypertension Insomnia Low back pain Multiple sclerosis Neurologic gait dysfunction Osteoporosis Sensorineural hearing loss of both ears SNHL (sensorineural hearing loss) Stage III chronic kidney disease Tubular adenoma of colon Urinary, incontinence, stress female Exercise / Class Metabolic Activity III < 4 Walking/Shop/Light housework Past Family History Family History Mother Uterine cancer Father Acute myocardial infarction Myocardial infarction, Onset Age: 52 Brother Acute myocardial infarction Myocardial infarction, Onset Age: 48 Uncle Colon cancer Grandmother (Maternal) Colon cancer Cancer Other No family history of adverse response to anesthesia Denies family history of Ovarian cancer Prostate cancer Diabetes Breast cancer Colorectal cancer Past Surgical History Surgical History H/O tubal ligation History of colonoscopy History of left cataract extraction History of loop electrical excision procedure (LEEP) History of right cataract surgery History of tooth extraction S/P dilation and curettage S/P knee replacement Status post lumbar spine operative procedure for decompression of spinal cord Past Anesthesia History No Hx of Anesthesia Complications and No Family Hx of Anesthesia Complications History of PONV No Hx of PONV and No Hx of Motion Sickness Social History Smoking Status: Never smoker Do You Dip or Chew Tobacco: No Hx Alcohol Use: Yes ("once a week has some wine") Alcohol type: wine alcohol intake frequency: a few times a month Hx Substance Use: No Review of Systems Patient denies chest pain, shortness of breath, dyspnea on exertion, fever, chills, cough, wheezing, palpitations. Physical Exam Vital Signs BP 107/72 P 71 TEMP 97.8 SP02 97%RA RESP 18 Physical Full cervical extension range of motion. Full TMJ range of motion. TMD 3 finger breaths Mallampati Score III Dentition: + missing (sides), + caps Lungs: clear throughout to auscultation Cardiac: regular rate and rhythm, no murmurs noted Spine: normal Carotid arteries: negative bruit Extremities: no LE edema Lab Results Anesthesia Preop Results Results Anesthesia Widget: WBC 4.35 K/ul (4.8-10.8) L 08/01/24 Hgb 14.8 g/dl (12.0-16.0) 08/01/24 Hct 44.9 % (37.0-47.0) 08/01/24 Plt 186 K/uL (130-400) 08/01/24 Na 141 mmol/L (136-145) 08/01/24 K 3.9 mmol/L (3.5-5.1) 08/01/24 Cl 106 mmol/L (98-107) 08/01/24 CO2 29 mmol/L (21-32) 08/01/24 BUN 20 mg/dl (6-23) 08/01/24 Creat 1.08 mg/dl (0.6-1.2) 08/01/24 Glucose Level 74 mg/dl (70-99(Fasting)) 08/01/24 PT 11.3 Seconds (9.0-12.0) 08/01/24 PTT 26 Seconds (21-31) 08/01/24 INR 1.0 (0.9-1.1) 08/01/24 Blood Type A Positive 08/01/24 Antibody Screen NEGATIVE 08/01/24 Testing Electrocardiogram Date: 08/01/24 NSR at 69bpm. RBBB. Isolated lead III TWI. Chest X-Ray Date: 08/02/24 FINDINGS: PA and lateral chest radiographs are compared to study dated 2018. The cardiomediastinal silhouette is unremarkable noting atherosclerotic calcification of the thoracic aorta. There is mild bibasilar scarring/atelectasis. The lungs and pleural spaces are otherwise clear. There is no pneumothorax. The skeletal structures are osteopenic. The bony thorax appears intact. Degenerative change and scoliosis is noted in the spine. IMPRESSION: No active disease in the chest.
[2024-08-28] MEDS ORDERED: MIDAZOLAM HCL 1 MG/ML 2ML VIAL ONE (08:34)
[2024-08-28] MEDS ORDERED: LIDOCAINE 2% 2 ML VIAL/AMP(20MG/ML) INFIL ONE (08:34)
[2024-08-28] MEDS ORDERED: PROPOFOL IV EMULSION 10 MG/ML 20 ML VIAL IV ONE (08:34)
[2024-08-28] MEDS ORDERED: DEXAMETHASONE SOD INJ 4 MG/ML VIAL ONE (08:35)
[2024-08-28] MEDS ORDERED: fentaNYL citrate PF 100 MCG/2 ML VIAL ONE (08:35)
[2024-08-28] MEDS ORDERED: ONDANSETRON INJ 2 MG/ML 2 ML VIAL ONE (08:35)
[2024-08-28] MEDS: ACETAMINOPHEN 500 MG TAB PO SCH (09:05)
[2024-08-28] MEDS: GABAPENTIN 300 MG CAP PO SCH (09:05)
[2024-08-28] MEDS: LR 60ML/HR IV SCH (09:06)
[2024-08-28] MEDS: CeleBREX 200 MG CAP PO SCH (09:06)
[2024-08-28] MEDS: LR 15ML/HR IV SCH (09:06)
[2024-08-28] MEDS ORDERED: ATROPINE SULFATE 0.1 MG/ML 10ML SYR IV PRN (09:24)
[2024-08-28] MEDS ORDERED: ePHEDrine sulfate 50 MG/ML AMP IV PRN (09:24)
[2024-08-28] MEDS ORDERED: HYDROmorphone INJ 1 MG/ML SYRINGE IV PRN ×2 (09:24→13:15)
--- NOTE | 2024-08-28 09:54 | History & Physical Report ---
Date of Service August 28, 2024 Assessment & Plan (1) Neurogenic claudication due to lumbar spinal stenosis: Plan: Decompression and fusion L3-L4, removal of hardware L4-L5 History of Present Illness Chief Complaint: Back and leg pain Primary Care Provider: Jeff Claros DO This is a 78-year-old female known to me the presents with chronic persistent back and leg pain after failing course of nonoperative care she is here for surgical invention. Allergies Allergy/AdvReac Type Severity Reaction Status Date / Time No Known Allergies Allergy Unverified 08/28/24 08:50 Home Medications Medication Instructions Recorded Confirmed Type multivitamin-ferrous 1 tab PO QAM #90 tabs 04/20/21 08/28/24 Rx fumarate-folic acid 18 mg-400 mcg tablet (Centrum) fluticasone propionate 50 1 spray intranasal UD PRN 04/12/22 08/28/24 History mcg/actuation nasal Congestion spray,suspension denosumab 60 mg/mL subcutaneous 60 mg subcut UD 04/06/23 08/28/24 History syringe (Prolia) fluocinolone acetonide oil 0.01 % 4 drp otic (ear) UD PRN ear itching 04/06/23 08/28/24 History ear drops atenolol 25 mg tablet 25 mg PO QAM #90 tabs 01/31/24 08/28/24 Rx hydroxyzine HCl 10 mg tablet 10 mg PO UD PRN Sleep 07/30/24 08/28/24 History sertraline 100 mg tablet 100 mg PO QAM 07/30/24 08/28/24 History Past Med/Surg History Problem List Circadian rhythm sleep disorder, delayed sleep phase type Stress incontinence Neurogenic claudication due to lumbar spinal stenosis Encounter for pre-operative examination Osteoporosis (Chronic) Insomnia Depression Medical History Depression Hard of hearing High triglycerides History of colon polyps History of COVID-19 Hypertension Insomnia Low back pain Multiple sclerosis Neurologic gait dysfunction Osteoporosis Sensorineural hearing loss of both ears SNHL (sensorineural hearing loss) Stage III chronic kidney disease Tubular adenoma of colon Urinary, incontinence, stress female Surgical History H/O tubal ligation History of colonoscopy History of left cataract extraction History of loop electrical excision procedure (LEEP) History of right cataract surgery History of tooth extraction S/P dilation and curettage S/P knee replacement Status post lumbar spine operative procedure for decompression of spinal cord Family History Mother Uterine cancer Father Acute myocardial infarction Myocardial infarction, Onset Age: 52 Brother Acute myocardial infarction Myocardial infarction, Onset Age: 48 Uncle Colon cancer Grandmother (Maternal) Colon cancer Cancer Other No family history of adverse response to anesthesia Denies family history of Ovarian cancer Prostate cancer Diabetes Breast cancer Colorectal cancer Social History Smoking Status: Never smoker Second Hand Exposure: No; Do You Dip or Chew Tobacco: No; Tobacco Cessation Education Requested by Patient: No Hx Alcohol Use: Yes ("once a week has some wine") Alcohol type: wine Alcohol Intake Frequency Comment: once a week Hx Substance Use: No Preferred Language: [place]se Communication Ability: Effective Visual Impairment: Limited Hearing Ability: Use of Hearing Aid Legal Recruiter Required: No Beliefs That Will Affect Care: Scientologist Scientologist Beliefs: YAZIDI marital status: Current Living Situation: Spouse Current Living Situation Comment: current occupational status: retired How many Children do You have: 2 Other Information That Helps Us Care for You: No Feels Safe at Home: Yes Safety Concerns: Feels Safe At This Time Childhood Exposure to Second-Hand Smoke: No (father smoked in home ) Diet: regular caffeine: Yes (tea) during the past year weight has: remained stable Dental Care, Regularly: No Physical Activity Frequency: 5-6 Times per Week Physical Activity Frequency Comment: stationary bike Seatbelt Use: always Sunscreen Use: No Assistive Devices: Glasses, Hearing Aid - Bilateral and Walker Physical Exam Physical Exam: Patient is alert and oriented heart regular rhythm Lungs clear Results & Data Results & Data Vital Signs (Past 12 Hours) Vital Signs Temp Pulse Resp BP Pulse Ox O2 Del Method 08/28/24 08:53 36.9 C 73 20 143/88 H 95 Room Air
--- NOTE | 2024-08-28 09:54 | History & Physical Bridge Note ---
Date of Service August 28, 2024 History & Physical Bridge Note I have examined the patient, reviewed the History & Physical and in the interval since the performance of the History & Physical I have noted the following changes of clinical significance: no changes noted
[2024-08-28] MEDS: ceFAZolin 2000MG 2,000 MG/15 ML SYR IV SCH (10:26)
[2024-08-28] MEDS: BUPIVACAINE/EPINEPHRINE 0.25% 1:200,000 30 ML VIAL ONE (11:02)
[2024-08-28] MEDS: ceFAZolin 330 MG/ML 1 GM VIAL ONE (11:03)
[2024-08-28] MEDS ORDERED: ePHEDrine sulfate 50 MG/5 ML SYR ONE (11:30)
[2024-08-28] MEDS ORDERED: PHENYLEPHRINE HCL 10 MG/ML VIAL ONE (11:30)
[2024-08-28] MEDS: FLOSEAL HEMOSTATIC MATRIX 10ML TOP ONE (11:51)
[2024-08-28] MEDS ORDERED: SUGAMMADEX SODIUM 200 MG/2 ML VIAL IV ONE (11:53)
--- NOTE | 2024-08-28 12:04 | Operative Report ---
Post Operative Report Pre & Post Diagnosis Operation Date: 08/28/24 10:05 Pre-Op Diagnosis: Spinal Stenosis, Lumbar Region with Neurogenic Claudication Post-Op Diagnosis: Spinal Stenosis, Lumbar Region with Neurogenic Claudication I identified the patient and participated in the time-out.: Yes Procedure Operation Date: 08/28/24 10:05 Actual Procedures #1 removal of posterior instrumentation L4-L5. #2 exploration of fusion L4-5 per #3 lumbar decompression with bilateral medial facetectomies and foraminotomies L2-L3 L3-L4. #4 posterior spinal fusion L3-L4. #5 placement posterior instrumentation L3-L4. #6 interbody fusion L3-L4. #7 placement of Spira 12 x 26 mm at L3-L4. #8 application of versa wrap over the exposed dura. Surgeon Silas Mitchell, Safety Coordinator Laura Michelle Estimated Blood Loss 50 Findings Consistent with Post-Op Diagnosis Specimens None Indications This is a 78-year-old female who presents publish diagnosis after failing course of nonoperative care she is here for surgical invention. Description of Procedure Patient was met with identified informed consent obtained. Patient was then taken to the operative suite underwent intubation placed in a prone position on the Jerzy table atop the Carlo frame. All bony prominences well-padded eyes inspected to ensure no external pressure placed upon. This point the lumbar spine was prepped and draped in normal sterile fashion. Sharp dissection with the assistance of Bovie cautery was performed down to and exposing the lamina and transverse processes of L3 and the instrumentation at L4-5 bilaterally. I then proceeded to move the hardware bilaterally explored the fusion mass noting being mature and intact. Then performed a complete laminectomy of L3 including bilateral medial facetectomies and foraminotomies addressing severe spinal stenosis. This was followed by partial laminectomy of L2 with bilateral medial facetectomies to address all subarticular disease. Pedicle screws were then placed in L3-L4 bilaterally with assistance of fluoroscopy and the properly sized juan placed. By way of a transforaminal approach on the left complete discectomy of L3-L4 was performed endplates guarded to subcortical bleeding bone and a 12 x 26 mm Spira cage filled with os design bone graft tapped in position. The rods then compressed locked into final position bilaterally. The transverse processes of L3-L4 burred to subcortical bleeding bone. Infuse collagen sponge combined with Koros and local autograft placed in the posterior lateral gutters. Versa wrap placed over the exposed dura. 15 round NEVIN drain inserted. Incision was then closed with 1 Vicryl in the fascia 2-0 Vicryl subcutaneously and 4 Monocryl for final skin closure. Steri-Strips sterile dressing placed. Patient waken taken to PACU stable condition. Please note spinal cord monitoring was utilized at the procedure no changes noted. Laura Michelle was present at the entire surgeon while the patient positioning complex portions of the surgery and final skin closure. Im ordering 20 grams of Triple Gill Collagen Powder (PowerMag [id number]) to treat an incision wound that was caused by a spine procedure. The incision is approximately 2 cm(W) x 4 cm(L) into the joint (D) in size and is a full thickness wound. Triple Gill collagen comes in 1 gram packets so 20 packets were ordered. Given the size of the wound, with light to moderate exudate I chose to order a 20 day supply. The patient will be provided instructions for proper application of the collagen wound kit. The patient will be asked to apply the collagen powder daily and then cover it with sterile dressings dispensed. Collagen was selected as I expect the collagen to attract monocytes and fibroblasts, act as a sacrificial substrate for MMPs, and ultimately proved a matrix for tissue and vessel growth. The collagen will act as a primary dressing in this scenario. It is medically necessary for proper healing of these wounds to improve bioavailability and contact with each wound surface, this is also to help prevent infection of wounds and promote healing ultimately leading to a better healing outcome and limit the risk of infection. I attest to the content of the Intraoperative Record and any orders documented therein. Any exceptions are noted below.
--- NOTE | 2024-08-28 12:52 | Fluoroscopy Report ---
FL lumbar spine 2-3V CLINICAL HISTORY: L3-L4 DECOMPRESSION COMPARISON STUDY: Lumbar spine MRI July 02, 2024. Lumbar spine fluoroscopic images November 21 9. FLUOROSCOPY TIME: 15 seconds. willy Nicholson: 10.39 mGy FLUOROSCOPIC IMAGES: 2 FINDINGS: Fluoroscopy was provided during interval L3-L4 discectomy, decompression and fusion. The garcia rdware is intact. Hardware removal at the L4-L5 level was also performed. There is an L4-L5 spacer. IMPRESSION: Fluoroscopy provided during L4-L5 hardware removal and subsequent L3-L4 decompression an d fusion. ACT 112: Negative or not required by law. Electronically signed by: Karson Arroyo M.D. 08/28/2024 12:50 PM
[2024-08-28] MEDS ORDERED: SOD PHOSPHATE/SOD BIPHOSPHATE ENEMA 132 ML BTL PR PRN (13:15)
[2024-08-28] MEDS ORDERED: hydrOXYzine HCl 10 MG TAB PO PRN (13:15)
[2024-08-28] MEDS: LACTATED RINGER'S 1,000 ML IV SCH (13:15)
[2024-08-28] MEDS ORDERED: diphenhydrAMINE Capsule 25 MG CAP PO PRN (13:15)
[2024-08-28] MEDS ORDERED: MAGNESIUM HYDROXIDE SUSP 30 ML UDC PO PRN (13:15)
[2024-08-28] MEDS ORDERED: NALOXONE HCL 0.4 MG/1 ML VIAL/CARP IV PRN (13:15)
[2024-08-28] MEDS ORDERED: ONDANSETRON 4 MG OD TAB PO PRN (13:15)
[2024-08-28] MEDS ORDERED: LORazepam 0.5 MG TAB PO PRN (13:15)
[2024-08-28] MEDS ORDERED: LORazepam 2 MG/1 ML VIAL IV PRN (13:15)
[2024-08-28] MEDS ORDERED: PROMETHAZINE 12.5 MG/50.5 ML BAG IV PRN (13:15)
[2024-08-28] MEDS ORDERED: HYDROmorphone INJ 0.5 MG/0.5 ML SYR IV PRN (13:15)
[2024-08-28] MEDS ORDERED: METOCLOPRAMIDE HCL INJ 5 MG/ML 2 ML VIAL IV PRN (13:15)
[2024-08-28] MEDS ORDERED: FAMOTIDINE 20 MG TAB PO PRN (13:15)
[2024-08-28] MEDS ORDERED: ONDANSETRON INJ 2 MG/ML 2 ML VIAL IV PRN (13:15)
[2024-08-28] MEDS ORDERED: DO NOT ADMINISTER FLU VACCINE PRN (13:15)
[2024-08-28] MEDS ORDERED: ACETAMINOPHEN 1,000 MG/100 ML VIAL IV PRN (13:15)
[2024-08-28] MEDS ORDERED: DO NOT ADMINISTER PNEUMOCOCCAL VACCINE PRN (13:15)
[2024-08-28] MEDS ORDERED: FLUTICASONE PROPIONATE NA SPR 16 GM BTL PRN (13:15)
[2024-08-28] MEDS ORDERED: bisacodyL 10 MG SUPP PR PRN (13:15)
--- NOTE | 2024-08-28 13:22 | Anesthesiology Progress Note ---
Date of Service August 28, 2024 Anesthesia Post Procedure Vital Signs Vital Signs: Temp Pulse Resp BP Pulse Ox O2 Del Method O2 Flow Rate 08/28/24 13:10 82 15 105/75 95 Room Air 08/28/24 12:55 36.5 C 84 14 106/78 96 Room Air 08/28/24 12:45 86 12 103/71 95 Room Air 08/28/24 12:35 87 17 114/84 100 Oxymask 4 08/28/24 12:25 92 H 12 101/76 99 Oxymask 4 08/28/24 12:17 36.1 C L 89 20 112/69 97 Oxymask 6 08/28/24 08:53 36.9 C 73 20 143/88 H 95 Room Air Transfer of Care Handoff Completed per policy Notes Mental Status: alert / awake / arousable Patient Amnestic to Procedure: Yes Nausea / Vomiting: adequately controlled Pain: adequately controlled Airway Patency, RR, SpO2: stable & adequate BP & HR: stable & adequate Hydration State: stable & adequate Anesthetic Complications: no major complications apparent
--- NOTE | 2024-08-28 15:01 | Hospitalist Consultation ---
Date of Consultation August 28, 2024 Assessment & Plan (1) Neurogenic claudication due to lumbar spinal stenosis: Patient underwent surgical procedure for neurogenic claudication secondary to lumbar spinal stenosis. First surgical intervention was in October 2019 for L4-L5 decompression fusion. Patient had tolerated surgery and recovery well. Today, underwent removal of instrumentation at L4-L5, exploration of fusion L4- L5, lumbar decompression with bilateral facetectomies and foraminotomies L2-L3 L3-L4, posterior spinal fusion of L3-L4, placement of instrumentation L3-L4, interbody fusion of L3-L4, and placement of Spira at L3-L4. Pain 0 out of 10. -EBL 50 -CBC in a.m. -Pain managed with as needed Tylenol, hydromorphone, and tramadol. (2) Circadian rhythm sleep disorder, delayed sleep phase type: Insomnia, managed in outpatient clinic - Managed with hydroxyzine 20mg Plan HTN- Continue atenolol 25 mg CKD III- Most recently collected on 08/01/2024 Cr 1.08, BUN 20; BMP in AM Depression- Continue zoloft 100 mg VTE Prophylaxis: SCDs Code: Full History of Present Illness Reason for Consultation: Medical management Requesting Physician: Silas Mitchell DO Attending Physician: Silas Mitchell DO History of Present Illness Patient seen today for surgical procedure for decompression and fusion of L3-L4, as well as removal of hardware from L4-L5 secondary to neurogenic claudication due to lumbar spinal stenosis. Patient failed conservative and nonoperative management. EBL 50. Vitals within normal limits. Patient is laying in bed at time of visit. , Andrea, is in the room. Patient explains that she has a history of narrowing in her lumbar spine causing her to have recurrent symptoms of pain in her back and legs. Patient is explanation of what she understood happened regarding surgery was that old hardware was removed from her back and replaced. Last orthopedic related surgery from October 2019. Reports that her current pain is 0 out of 10 on the pain scale. Admits to feeling as though she had a lot of bladder pressure but that has since been relieved. Denies headache, vision changes, chest pain, shortness of breath, abdominal pain, N/V/D/C, joint pain. Allergies Allergy/AdvReac Type Severity Reaction Status Date / Time No Known Allergies Allergy Unverified 08/28/24 08:50 Home Medications Medication Instructions Recorded Confirmed Type multivitamin-ferrous 1 tab PO QAM #90 tabs 04/20/21 08/28/24 Rx fumarate-folic acid 18 mg-400 mcg tablet (Centrum) fluticasone propionate 50 1 spray intranasal UD PRN 04/12/22 08/28/24 History mcg/actuation nasal Congestion spray,suspension denosumab 60 mg/mL subcutaneous 60 mg subcut UD 04/06/23 08/28/24 History syringe (Prolia) fluocinolone acetonide oil 0.01 % 4 drp otic (ear) UD PRN ear itching 04/06/23 08/28/24 History ear drops atenolol 25 mg tablet 25 mg PO QAM #90 tabs 01/31/24 08/28/24 Rx hydroxyzine HCl 10 mg tablet 10 mg PO UD PRN Sleep 07/30/24 08/28/24 History sertraline 100 mg tablet 100 mg PO QAM 07/30/24 08/28/24 History oxycodone 5 mg tablet 5 mg PO Q6H PRN pain #30 tabs 08/28/24 Rx tramadol 50 mg tablet 50 mg PO Q6H PRN pain, moderate 08/28/24 Rx #30 tabs Patient History Medical History Insomnia Stage III chronic kidney disease Per records History of COVID-19 2021 Urinary, incontinence, stress female Depression History of colon polyps Sensorineural hearing loss of both ears Osteoporosis Hard of hearing Multiple sclerosis Follows with neuro (Dr. Hartley) Stable Tubular adenoma of colon hx SNHL (sensorineural hearing loss) Neurologic gait dysfunction Low back pain Hypertension High triglycerides Per records Surgical History History of left cataract extraction History of right cataract surgery History of tooth extraction Status post lumbar spine operative procedure for decompression of spinal cord October 2019. Dr Mitchell. posterior fusion L4-5 History of colonoscopy H/O tubal ligation S/P knee replacement right knee- 01/2016 S/P dilation and curettage History of loop electrical excision procedure (LEEP) Family History Mother Uterine cancer Father Acute myocardial infarction Myocardial infarction, Onset Age: 52 Brother Acute myocardial infarction Myocardial infarction, Onset Age: 48 stroke verses heart attack Uncle Colon cancer maternal uncle Grandmother (Maternal) Colon cancer Cancer Other No family history of adverse response to anesthesia Denies family history of Ovarian cancer Prostate cancer Diabetes Breast cancer Colorectal cancer Social History Smoking Status: Never smoker Second Hand Exposure: No; Do You Dip or Chew Tobacco: No; Tobacco Cessation Education Requested by Patient: No Hx Alcohol Use: Yes ("once a week has some wine") Alcohol type: wine Alcohol Intake Frequency Comment: once a week Hx Substance Use: No Preferred Language: Greenlandic Communication Ability: Effective Visual Impairment: Limited Hearing Ability: Use of Hearing Aid Image Assembler Required: No Beliefs That Will Affect Care: Rastafarian Rastafarian Beliefs: BUDDHISM marital status: Current Living Situation: Spouse Current Living Situation Comment: current occupational status: retired How many Children do You have: 2 Other Information That Helps Us Care for You: No Feels Safe at Home: Yes Safety Concerns: Feels Safe At This Time Childhood Exposure to Second-Hand Smoke: No (father smoked in home ) Diet: regular caffeine: Yes (tea) during the past year weight has: remained stable Dental Care, Regularly: No Physical Activity Frequency: 5-6 Times per Week Physical Activity Frequency Comment: stationary bike Seatbelt Use: always Sunscreen Use: No Assistive Devices: Glasses, Hearing Aid - Bilateral and Walker Review of Systems Eyes: no problem reported Respiratory: no cough and no dyspnea Cardiovascular: no chest pain, no palpitations, no lightheadedness and no syncope Gastrointestinal: no abdominal pain, no heartburn, no nausea, no vomiting, no constipation and no diarrhea/loose stools Genitourinary: no urinary incontinence (At this time) Musculoskeletal: no body aches Neurologic: no tingling and no numbness Physical Exam Constitutional: WD/WN, vitals as above Respiratory: normal respiratory effort, lungs clear to auscultation Cardiovascular: RRR, no murmur, no edema Gastrointestinal (Abdomen): normal bowel sounds, soft, nontender, no hepatosplenomegaly Musculoskeletal: Lower legs with SCDs Skin: no rashes, warm and dry Psychiatric: Orientation: alert and oriented x 3 Results & Data Results & Data Vital Signs (Past 12 Hours) Vital Signs Temp Pulse Pulse Resp BP BP Pulse Ox 08/28/24 14:32 86 16 107/72 95 08/28/24 13:45 36.4 C L 85 14 99/69 L 94 08/28/24 13:39 08/28/24 13:39 36.4 C L 83 14 99/64 L 94 08/28/24 13:26 36.4 C L 83 14 99/64 L 94 08/28/24 13:10 82 15 105/75 95 08/28/24 12:55 36.5 C 84 14 106/78 96 08/28/24 12:45 86 12 103/71 95 08/28/24 12:35 87 17 114/84 100 08/28/24 12:25 92 H 12 101/76 99 08/28/24 12:17 36.1 C L 89 20 112/69 97 08/28/24 08:53 36.9 C 73 20 143/88 H 95 O2 Del Method O2 Flow Rate 08/28/24 14:32 Room Air 08/28/24 13:45 Room Air 08/28/24 13:39 Room Air 08/28/24 13:39 Room Air 08/28/24 13:26 Room Air 08/28/24 13:10 Room Air 08/28/24 12:55 Room Air 08/28/24 12:45 Room Air 08/28/24 12:35 Oxymask 4 08/28/24 12:25 Oxymask 4 08/28/24 12:17 Oxymask 6 08/28/24 08:53 Room Air PG Care Time/CCT Total # of Minutes Spent Total Time Spent with Patient: Total time spent is greater than 50% in coordination of care (as documented) at patient's floor/unit and/or counseling patient: Coding Level of Care Code None Diagnoses Neurogenic claudication due to lumbar spinal stenosis M48.062 Circadian rhythm sleep disorder, delayed sleep phase type G47.21
[2024-08-28] MEDS: oxyCODONE HCL IR 5 MG TAB (IMMEDIATE RELEASE) PO PRN (17:01)
--- NOTE | 2024-08-28 18:08 | Billing Data ---
Date of Service August 28, 2024 Coding Level of Care Code 38551 INT INP/OBS CARE
[2024-08-28] MEDS: ceFAZolin 1000MG 1,000 MG/7.5 ML SYR IV SCH (18:18)
[2024-08-28] MEDS: DOCUSATE SODIUM/SENNA 50/8.6MG TAB PO SCH (20:07)
[2024-08-28] MEDS: hydrOXYzine HCl 25 MG TAB PO PRN (20:55)
[2024-08-29] MEDS: ALBUMIN 25% 25 GM/100 ML VIAL IV ONE (00:44)
[2024-08-29] MEDS: LACTATED RINGER'S 500 ML IV ONE (00:55)
[2024-08-29] MEDS: COUGH DROP (SUGAR FREE) LOZ 24 LOZ/1 BOX BUCCAL ONE (01:02)
[2024-08-29 01:06] LABS: Hemoglobin 10.3 g/dl (12.0-16.0); Mean Corpuscular Hemoglobin 29.7 pg (25.0-34.0); Mean Corpuscular Hgb Conc 33.2 g/dL (32.0-36.0); Mean Corpuscular Volume 89.3 fL (80.0-100.0); Mean Platelet Volume 10.8 fL (9.4-12.4); Platelet Count 143 K/uL (130-400); RDW Standard Deviation 42.7 fL (36.4-46.3); Red Blood Count 3.47 M/uL (4.20-5.40); White Blood Count 7.98 K/ul (4.8-10.8)
[2024-08-29 01:21] LABS: Albumin Globulin Ratio 1.9 (0.9-2); Albumin Level 3.1 gm/dl (3.4-5.0); Bilirubin,Total 0.2 mg/dl (0.2-1.0); C Reactive Protein 1.38 mg/dl (0-0.5); Calcium 7.9 mg/dl (8.6-10.3); Creatinine Clr Calc Pharmacy 38.4 ml/min; Globulin 1.6 gm/dl (2.5-4.0); Magnesium 1.6 mg/dl (1.7-2.4); Potassium 4.3 mmol/L (3.5-5.1); Total Protein 4.7 gm/dl (6.0-8.3)
--- NOTE | 2024-08-29 01:37 | Communication Note ---
Date of Service: August 29, 2024 Notified by nursing at 2330 regarding hypotension as BP had dropped to 83/54. At this time, patient was receiving LR @ 100cc/hr. Decision was made to provide 500cc Bolus of LR. Notified by nursing at 0030 that despite bolus, patient's BP had further dropped to 74/47. Despite additional 500 cc bolus, patient's BP remained low. Vitals: Hypotension, tachycardia, afebrile, on room air Exam: Patient non-toxic and in no acute distress. Heart regular rhythm though tachycardic. Lungs CTAB. Normoactive bowel sounds w/o TTP or distension. No LE edema. Patient's NEVIN drain and surgical bandage remained intact. NEVIN drain w/ 40 cc of serosanguineous fluid (last changed 2299). New, but scant amount of blood on surgical bandage. Assessment/Plan: - Concern for acute blood loss given recent surgery - Medication review revealed no potential hypotension inducing agents received this evening - Obtained CBC, CMP, Lactate, CRP, Procal, blood culture deferred d/t lack of signs for infection at this time - Provided 25g IV Albumin, w/ subsequent BP improvement - CBC showed Hgb drop from 14.8 to 10.3, supporting acute blood loss, though not meeting transfusion threshold - Will continue to support pressures w/ IVF/Albumin PRN - Surgeon contacted Resident Activity Tracking Resident Involvement: Resident Care Provided Care Provided: Adult Hospital Medicine
[2024-08-29 04:07] LABS: Basophils # (auto) 0.01 K/uL (0.00-0.20); Basophils % (auto) 0.2 %; Hematocrit (blood only) 29.1 % (37.0-47.0); Hemoglobin 9.7 g/dl (12.0-16.0); Immature Granulocytes # (auto) 0.02 K/uL (0.01-0.20); Immature Granulocytes % (auto) 0.3 %; Lymphocytes # (auto) 0.93 K/uL (1.20-3.40); Lymphocytes % (auto) 15.1 %; Mean Corpuscular Hemoglobin 29.8 pg (25.0-34.0); Mean Corpuscular Hgb Conc 33.3 g/dL (32.0-36.0); Mean Corpuscular Volume 89.5 fL (80.0-100.0); Monocytes % (auto) 9.7 %; Neutrophils % (auto) 74.7 %; Platelet Count 116 K/uL (130-400); RDW Standard Deviation 42.5 fL (36.4-46.3); Red Blood Count 3.25 M/uL (4.20-5.40); White Blood Count 6.16 K/ul (4.8-10.8)
[2024-08-29 04:24] LABS: BUN Creatinine Ratio 14.8 (10-20); Calcium 8.1 mg/dl (8.6-10.3); Creatinine Clr Calc Pharmacy 40.5 ml/min; Potassium 4.2 mmol/L (3.5-5.1)
[2024-08-29] MEDS: POLYETHYLENE (MIRALAX) 17 GM PACK PO SCH (06:15)
[2024-08-29] MEDS: traMADol HCL 50 MG TABLET PO PRN (06:19)
[2024-08-29] MEDS: ATENOLOL 25 MG TABLET PO SCH (07:54)
[2024-08-29] MEDS: SERTRALINE HCL 100 MG TABLET PO SCH (08:10)
[2024-08-29] MEDS: dexAMETHasone 6 MG in SYRINGE 0 ML IV SCH (08:10)
[2024-08-29] MEDS: ACETAMINOPHEN 500 MG TAB PO PRN (08:10)
[2024-08-29] MEDS: MULTIVITAMIN TAB PO SCH (08:10)
--- NOTE | 2024-08-29 08:33 | Orthopedic Progress Note ---
Date of Service August 29, 2024 Assessment & Plan (1) Neurogenic claudication due to lumbar spinal stenosis: Plan: At this time initiate physical therapy monitor her NEVIN output over the discharge over the next few days. Admission and Anticipated Discharge Date Admission Date: August 28, 2024 Subjective Back pain controlled leg symptoms improved Physical Exam Physical Exam: Patient is currently in bed. She comfortable. Good strength testing. Results & Data Vital Signs (Past 12 Hours) Vital Signs Temp Pulse Resp BP Pulse Ox O2 Del Method 08/29/24 07:13 37.0 C 94 H 18 97/65 L 93 Room Air 08/29/24 06:24 101 H 101/66 08/29/24 03:20 37.3 C 100 H 14 100/63 92 Room Air 08/29/24 00:59 36.8 C 97 H 16 110/64 91 Room Air 08/29/24 00:16 98 H 74/47 L 94 Room Air 08/28/24 23:12 36.8 C 100 H 16 83/54 L 94 Room Air Queries Orthopedic Spine Acute Posthemorrhagic Anemia: Yes
--- NOTE | 2024-08-29 10:33 | Hospitalist Progress Note ---
<Statement entered by Tiffanie Miranda MD - 08/29/24 18:46> I have reviewed vital signs, chart notes, labs and imaging. I have personally seen, evaluated and examined the patient. I have also discussed the management of the patient with the [place] and I agree with the exam findings documented in the history and physical examination and the documented assessment and plan unless otherwise stated below. Josette did have hypotension overnight with SBP in the 70s this was treated with IV fluids and albumin resident assessed her obtain full labs including repeat CBC and lactate, procalcitonin. These were relatively unremarkable except for postoperative acute blood loss anemia which is expected. NEVIN output overnight 350 mL. Josette reports she was asymptomatic from this episode overnight has not had lightheadedness or dizziness no dyspnea no chest pain no abdominal pain no melena. Back pain is well-controlled. She is mildly hypotensive mildly tachycardic so we gave additional liter of LR today we will monitor her hemoglobin. Atenolol has been held on my exam she is awake alert sitting in bed knitting with a GI ball of yellow urine. lungs are clear heart regular abdomen soft nontender nondistended NEVIN drain with serosanguineous drainage from her lumbar surgical incision which is dressed lower extremities warm and well-perfused distal strength is 5 out of 5 dorsiflexion and plantarflexion Date of Service August 29, 2024 Assessment & Plan (1) Neurogenic claudication due to lumbar spinal stenosis: Plan: Patient underwent surgical procedure for neurogenic claudication secondary to lumbar spinal stenosis. First surgical intervention was in October 2019 for L4-L5 decompression fusion. Patient had tolerated surgery and recovery well. 08/28, underwent removal of instrumentation at L4-L5, exploration of fusion L4- L5, lumbar decompression with bilateral facetectomies and foraminotomies L2-L3 L3-L4, posterior spinal fusion of L3-L4, placement of instrumentation L3-L4, interbody fusion of L3-L4, and placement of Spira at L3-L4. Pain 0 out of 10. -EBL 50 -CBC: RBC 3.25, hemoglobin 9.7, hematocrit 29.1, platelets 116 -CMP: Chloride 112, glucose 102, calcium 8.1, magnesium 1.6 -LR 1L at 200 mL/h x 1 -CBC, BMP a.m. -Pain managed with as needed Tylenol, hydromorphone, and tramadol. -NEVIN output 375 mL -PT initiated per Ortho (2) Circadian rhythm sleep disorder, delayed sleep phase type: Plan: Insomnia, managed in outpatient clinic - Managed with hydroxyzine 20mg Plan HTN- Continue atenolol 25 mg CKD III- Most recently collected on 08/01/2024 Cr 1.08, BUN 20; BMP in AM Depression- Continue zoloft 100 mg VTE Prophylaxis: SCDs Code: Full Admission and Anticipated Discharge Date Admission Date: August 28, 2024 Subjective Pt seen sitting in chair at bedside today. States that her pain is well controlled and limited to her back. She is taking pain medication as scheduled. Is passing gas, no BM and prefers to not take any medications to assist in this. Denies CP, SOB, palpitations, N/V/D, abdominal pain, edema. Feels as though she is ready to move around. Review of Systems Eyes: no problem reported Respiratory: no cough and no dyspnea Cardiovascular: no chest pain, no palpitations, no lightheadedness and no syncope Gastrointestinal: no abdominal pain, no heartburn, no nausea, no vomiting, no constipation and no diarrhea/loose stools Genitourinary: no urinary incontinence Musculoskeletal: no body aches Neurologic: no tingling and no numbness Physical Exam Constitutional: WD/WN, vitals as above Respiratory: normal respiratory effort, lungs clear to auscultation Cardiovascular: RRR, no murmur, no edema Gastrointestinal (Abdomen): normal bowel sounds, soft, nontender, no hepatosplenomegaly Stockings on lower legs. Skin: no rashes, warm and dry NEVIN drain in place Psychiatric: Orientation: alert and oriented x 3 Genitourinary: Catheter in place, clear yellow urine in bag, no sediment in tubing. Results & Data Results & Data Vital Signs (Past 12 Hours) Vital Signs Temp Pulse Resp BP Pulse Ox O2 Del Method 08/29/24 07:13 37.0 C 94 H 18 97/65 L 93 Room Air 08/29/24 06:24 101 H 101/66 08/29/24 03:20 37.3 C 100 H 14 100/63 92 Room Air 08/29/24 00:59 36.8 C 97 H 16 110/64 91 Room Air 08/29/24 00:16 98 H 74/47 L 94 Room Air 08/28/24 23:12 36.8 C 100 H 16 83/54 L 94 Room Air Laboratory Results Abnormal lab results 08/29/24 08/29/24 08/29/24 Range/Units 00:42 00:49 03:51 RBC 3.47 L 3.25 L (4.20-5.40) M/uL Hgb 10.3 L 9.7 L (12.0-16.0) g/dl Hct 31.0 L 29.1 L (37.0-47.0) % Plt Count 116 L (130-400) K/uL Lymph # (Auto) 0.93 L (1.20-3.40) K/uL [place] # (Auto) 0.60 H (0.11-0.59) K/uL Chloride 111 H 112 H (98-107) mmol/L Glucose 103 H (70-99(Fasting)) mg/dl POC Glucose 102 H (70-99) mg/dl Calcium 7.9 L 8.1 L (8.6-10.3) mg/dl Magnesium 1.6 L (1.7-2.4) mg/dl C-Reactive Protein 1.38 H (0-0.5) mg/dl Total Protein 4.7 L (6.0-8.3) gm/dl Albumin 3.1 L (3.4-5.0) gm/dl Globulin 1.6 L (2.5-4.0) gm/dl PG Care Time/CCT Total # of Minutes Spent Total Time Spent with Patient: Total time spent is greater than 50% in coordination of care (as documented) at patient's floor/unit and/or counseling patient: Coding Level of Care Code None Diagnoses Neurogenic claudication due to lumbar spinal stenosis M48.062 Circadian rhythm sleep disorder, delayed sleep phase type G47.21
[2024-08-29] MEDS: LACTATED RINGER'S 1,000 ML IV SCH (10:51)
[2024-08-29] MEDS: LACTATED RINGER'S 1,000 ML IV ONE (12:57)
--- NOTE | 2024-08-29 18:47 | Billing Data ---
Date of Service August 29, 2024 Coding Level of Care Code 85546 INT INP/OBS CARE
[2024-08-30 06:22] LABS: Hematocrit (blood only) 30.1 % (37.0-47.0); Hemoglobin 10.1 g/dl (12.0-16.0); Mean Corpuscular Hemoglobin 30.1 pg (25.0-34.0); Mean Corpuscular Hgb Conc 33.6 g/dL (32.0-36.0); Mean Corpuscular Volume 89.6 fL (80.0-100.0); Mean Platelet Volume 10.9 fL (9.4-12.4); Platelet Count 139 K/uL (130-400); RDW Standard Deviation 42.7 fL (36.4-46.3); Red Blood Count 3.36 M/uL (4.20-5.40); White Blood Count 7.05 K/ul (4.8-10.8)
[2024-08-30 06:33] LABS: BUN Creatinine Ratio 15.8 (10-20); Calcium 8.4 mg/dl (8.6-10.3); Creatinine Clr Calc Pharmacy 43.3 ml/min
[2024-08-30] MEDS: ALUMINUM/MAGNESIUM SUSP 30 ML UDC PO PRN (08:47)
--- NOTE | 2024-08-30 10:04 | Orthopedic Progress Note ---
Date of Service August 30, 2024 Assessment & Plan (1) Neurogenic claudication due to lumbar spinal stenosis: Plan: At this time we will continue physical therapy monitor NEVIN output over the discharge home later after this weekend. Admission and Anticipated Discharge Date Admission Date: August 28, 2024 Subjective Back pain controlled leg symptoms markedly improved. She did tolerate physical therapy better today. Physical Exam Physical Exam: Patient is in the chair at the bedside. She is comfortable. Good strength testing. Results & Data Vital Signs (Past 12 Hours) Vital Signs Temp Pulse Resp BP Pulse Ox O2 Del Method 08/30/24 07:04 36.9 C 84 17 105/69 96 Room Air Queries Orthopedic Spine Acute Posthemorrhagic Anemia: Yes
[2024-08-30] MEDS: OXYMETAZOLINE 0.05% 30 ML BTL ONE (13:49)
--- NOTE | 2024-08-30 17:08 | Hospitalist Progress Note ---
Date of Service August 30, 2024 Assessment & Plan (1) Neurogenic claudication due to lumbar spinal stenosis: Plan: Patient underwent surgical procedure for neurogenic claudication secondary to lumbar spinal stenosis. First surgical intervention was in October 2019 for L4-L5 decompression fusion. Patient had tolerated surgery and recovery well. 08/28, underwent removal of instrumentation at L4-L5, exploration of fusion L4- L5, lumbar decompression with bilateral facetectomies and foraminotomies L2-L3 L3-L4, posterior spinal fusion of L3-L4, placement of instrumentation L3-L4, interbody fusion of L3-L4, and placement of Spira at L3-L4. Pain 0 out of 10. postoperative acute blood loss anemia, hemoglobin acceptable at 10 and stable overnight postoperative hypotension resolved continue PT and OT prefers home with home health though may benefit from rehab (2) Circadian rhythm sleep disorder, delayed sleep phase type: Plan: Insomnia, managed in outpatient clinic - Managed with hydroxyzine 20mg Plan HTN- atenolol remains held CKD III- creatinine stable at 1 today Depression- Continue zoloft 100 mg VTE Prophylaxis: SCDs Code: Full Admission and Anticipated Discharge Date Admission Date: August 28, 2024 Subjective doing well back pain is only bothersome when she is going to stand up, no further pain radiating down her legs no shortness of breath no chest pain NEVIN drain has been removed she reports she has been discussing whether to go to rehab with her she does not want to go to rehab, she has been marginal for home with PT so far no further hypotension Physical Exam 2 Physical Exam: PHYSICAL EXAMINATION Last 24h vital signs reviewed, see documentation in flowsheet General: comfortable appearing, no distress HEENT: Normocephalic, atraumatic, pupils round and equal, sclerae anicteric, no conjunctival injection, moist mucus membranes Lungs: Normal respiratory effort. Clear to auscultation bilaterally. No RRW Heart: Regular rate and rhythm, no murmurs. No JVD Abdomen: Soft, nontender, nondistended. Bowel sounds present. Extremities: Warm, dry, well-perfused. No extremity edema. Neuro: Alert and oriented x 4, face symmetric, moves 4 extremities well Psych: Normal affect and behavior Results & Data Results & Data Vital Signs (Past 12 Hours) Vital Signs Temp Pulse Resp BP BP Pulse Ox O2 Del Method 08/30/24 15:37 36.9 C 89 16 124/82 94 Room Air 08/30/24 07:04 36.9 C 84 17 105/69 96 Room Air Laboratory Results 08/30/24 05:22 08/30/24 05:22 PG Care Time/CCT Total # of Minutes Spent Total Time Spent with Patient: Total time spent is greater than 50% in coordination of care (as documented) at patient's floor/unit and/or counseling patient: Coding Level of Care Code 93304 SUB INP/OBS CARE 2/35MIN Diagnoses Neurogenic claudication due to lumbar spinal stenosis M48.062 Circadian rhythm sleep disorder, delayed sleep phase type G47.21
--- NOTE | 2024-08-31 09:08 | Orthopedic Progress Note ---
Date of Service August 31, 2024 Assessment & Plan (1) Neurogenic claudication due to lumbar spinal stenosis: Plan: At this point we will need to reduce occupational therapy today. Anticipate possible discharge home tomorrow. Admission and Anticipated Discharge Date Admission Date: August 28, 2024 Subjective Patient's back pain is controlled leg pain improved Physical Exam Physical Exam: Patient is in the chair at the bedside. Discussed when to testing. Appears calm comfortable. Earlier Results & Data Vital Signs (Past 12 Hours) Vital Signs Temp Pulse Resp BP Pulse Ox O2 Del Method 08/31/24 07:14 36.5 C 89 16 149/80 H 92 Room Air 08/31/24 01:42 36.9 C 80 16 135/89 95 Room Air Queries Orthopedic Spine Acute Posthemorrhagic Anemia: Yes
[2024-08-31 15:36] VITALS: RESP 18
--- NOTE | 2024-09-01 07:46 | Discharge Summary ---
Date of Service September 01, 2024 Admission HPI Per Admitting Provider This is a 78-year-old female known to me the presents with chronic persistent back and leg pain after failing course of nonoperative care she is here for surgical invention. Discharge Data Consultations 08/28/24 13:15 Consult Hospitalist Routine Procedures Performed Operation Date: 08/28/24 10:05 Actual Procedures p L3-L4 Decompression and Fusion, Spinal Cord Monitoring(Not Applicable) - Silas Mitchell DO s L4-L5 Removal Hardware,(Not Applicable) - Silas Mitchell DO Hospital Course (1) Neurogenic claudication due to lumbar spinal stenosis: Patient is a pleasant 78-year-old female history physical examination radiographic images consistent with the above-mentioned diagnosis. This reason she was brought to the operating room and undergone removal of hardware at L4-5 lumbar decompression at L3-4 and continuation fusion from L3-L5. This performed by Dr. Mitchell under general anesthesia. She left the operating room with a NEVIN drain Nieto in place and transferred to the orthopedic floor in stable condition. She was placed on GI DVT prophylaxis. She was seen by physical therapy and Occupational Therapy postop day #1. And today 09/01/2024 she is met discharge criteria and can be discharged home. Her discharge instructions were to change her dressing once daily till it was dry then she may shower. She should change positions every 30 minutes. She has been given a limited amount of narcotic pain medication for pain control. She is devoid any significant bending, lifting, twisting. For follow-up care she is to see us in the office in 2 weeks or sooner if she developed any increasing pain drainage from the incision or weakness.
[2024-09-01 07:50] VITALS: BP 147/96; PULSE 89; TEMP 98.2; O2SAT 93
== END 2024-09-01 14:16 | disposition home or self-care (01) | DRG 454 ==
LOC: ASU 08:20 → 3E 12:07